=== PATIENT | female | born 1980 | race Caucasian/White ===

== ENCOUNTER 2018-11-11 13:21 | Outpatient (REF) | payer MEDICAID, SELFPAY ==
[2018-11-11 16:15] LABS: Anion Gap 10.8 mmol/L (3-11); BUN 14 mg/dL (7-18); CO2 22.2 mmol/L (21.0-32.0); CREATININE 0.65 mg/dL (0.55-1.02); Calcium 9.1 mg/dL (8.5-10.1); Chloride 104 mmol/L (98-107); Cholesterol 247 mg/dL (50-200); Glucose 119 mg/dL (70-100); HDL Cholesterol 20 mg/dL (40-60); Potassium 4.2 mmol/L (3.5-5.1); Sodium 137 mmol/L (136-145)
[2018-11-11 16:20] LABS: Triglyceride 1123 mg/dL (30-150)
[2018-11-11 16:33] LABS: LDL CHOLESTEROL 93 mg/dL (<100)
== END 2018-11-11 13:41 ==
LOC: NCHCN 13:21
PROVIDERS: PCP Nurse Practitioner Family; Visit Provider Nurse Practitioner Family
DX: Z00.00 Encounter for general adult medical examination without abnormal findings (principal); B35.4 Tinea corporis; L30.9 Dermatitis, unspecified; Z13.220 Encounter for screening for lipoid disorders; B35.3 Tinea pedis
CPT/HCPCS: 80048; 80061; 83721

== ENCOUNTER 2018-12-21 09:35 | Outpatient (REF) | payer MEDICAID, SELFPAY ==
[2018-12-21 11:21] LABS: Bilirubin Negative (Negative); Blood Trace-lysed (Negative); Clarity Clear (Clear); Glucose Negative (Negative); Ketones Negative (Negative); Leukocyte Esterase Negative (Negative); Nitrite Negative (Negative); Specific Gravity 1.025 (1.005-1.025); Urobilinogen 0.2 EU/dL (Up TO 0.2)
[2018-12-21 11:30] LABS: Bacteria Moderate HPF (Negative); Casts Negative LPF (Negative); Crystals Negative HPF (Negative); Epithelial Cells Moderate HPF (Negative); Mucus Negative (Negative); RBC Negative (0-2); WBC 0-2 HPF (0-5)
[2018-12-21 11:31] LABS: C & S Indicated? No/Sq. Contamination
[2018-12-21 11:41] LABS: Anion Gap 11.2 mmol/L (3-11); BUN 13 mg/dL (7-18); CO2 24.8 mmol/L (21.0-32.0); CREATININE 0.58 mg/dL (0.55-1.02); Calcium 9.2 mg/dL (8.5-10.1); Chloride 103 mmol/L (98-107); Cholesterol 224 mg/dL (50-200); Glucose 116 mg/dL (70-100); HDL Cholesterol 32 mg/dL (40-60); Potassium 4.2 mmol/L (3.5-5.1); Sodium 139 mmol/L (136-145); TSH (W/Ref FT4) 3.69 uIU/mL (0.36-3.74); Triglyceride 452 mg/dL (30-150)
[2018-12-21 11:53] LABS: LDL CHOLESTEROL 116 mg/dL (<100)
== END 2018-12-21 09:55 ==
LOC: NCHCN 09:35
PROVIDERS: PCP Nurse Practitioner Family; Visit Provider Nurse Practitioner Family
DX: E78.1 Pure hyperglyceridemia (principal)
CPT/HCPCS: 80048; 80061; 83721; 81003; 81015; 84443

== ENCOUNTER 2019-09-09 10:55 | Outpatient (REF) | payer MEDICAID, SELFPAY ==
[2019-09-09 16:09] LABS: HCT 44.1 % (36.0-46.0); HGB 14.9 g/dL (12.0-15.5); Mean Corp. HGB Concentration 33.8 g/dL (32.0-36.0); Mean Corpuscular Hemoglobin 30.6 pg (27.0-33.0); Mean Corpuscular Volume 90.6 fL (80-95); Mean Platelet Volume 11.3 fL (8.0-11.0); Platelet Count 290 x1000/uL (130-400); RBC 4.87 m/cumm (4.00-5.20); RBC Distribution Width 13.5 % (11.7-14.6); White Blood Cell Count 7.37 k/cumm (4.4-10.8)
[2019-09-09 16:20] LABS: ALT 25 U/L (14-59); AST 18 U/L (15-37); Albumin 4.3 g/dL (3.4-5.0); Alkaline Phosphatase 86 U/L (46-116); Anion Gap 8.6 mmol/L (3-11); BUN 18 mg/dL (7-18); Bilirubin, Total 0.3 mg/dL (0.2-1.0); CO2 28.4 mmol/L (21.0-32.0); Calcium 9.7 mg/dL (8.5-10.1); Chloride 100 mmol/L (98-107); Glucose 110 mg/dL (74-106); Potassium 4.3 mmol/L (3.5-5.1); Sodium 137 mmol/L (136-145); Total Protein 7.9 g/dL (6.4-8.2)
[2019-09-09 16:27] LABS: Bilirubin Negative (Negative); Blood Moderate (Negative); Clarity Sl Cloudy (Clear); Glucose Negative (Negative); Ketones Negative (Negative); Leukocyte Esterase Negative (Negative); Nitrite Negative (Negative); Specific Gravity >= 1.030 (1.005-1.025); Urobilinogen 0.2 EU/dL (Up TO 0.2)
[2019-09-09 16:37] LABS: Bacteria Few HPF (Negative); C & S Indicated? C&S Done As Ordered; Casts Negative LPF (Negative); Crystals Negative HPF (Negative); Epithelial Cells Many HPF (Negative); Mucus Negative (Negative); RBC 0-2 HPF (0-2); WBC 0-2 HPF (0-5)
[2019-09-12 14:40] LABS: IgA 129 mg/dL (85-499); Tissue Transglutaminase IgA <1.2 U/mL (<4.0)
== END 2019-09-09 11:15 ==
LOC: NCHCN 10:55
PROVIDERS: PCP Nurse Practitioner Family; Visit Provider Nurse Practitioner Family
DX: R31.9 Hematuria, unspecified (principal); K92.1 Melena
CPT/HCPCS: 80053; 82784; 83516; 85027; 81003; 81015; 87086

== ENCOUNTER 2019-12-09 08:00 | Outpatient (CLI) | payer MEDICAID, SELFPAY ==
[2019-12-10 03:01] LABS: COVID-19 RT-PCR UVMMC Result Negative (Negative)
== END 2019-12-09 08:20 ==
PROVIDERS: PCP Nurse Practitioner Family; Visit Provider Surgery
DX: Z01.818 Encounter for other preprocedural examination (principal)
CPT/HCPCS: U0003

== ENCOUNTER 2019-12-13 07:55 | Day surgery (SDC) | payer MEDICAID, SELFPAY ==
[2019-12-13 08:05] VITALS: BP 118/79; PULSE 80; RESP 16; TEMP 36.1; O2SAT 99
[2019-12-13] MEDS: Lactated Ringers 1,000 ML 80 ML IV (08:25)
--- NOTE | 2019-12-13 08:32 | W.PM.DSUDISC ---
Discharge Plan Disposition Patient Disposition: HOME Condition: Good Discharge Details Reason For Visit: EGD, Colonoscopy Attending Provider: Gaby George Primary Care Provider: Nithya Read Home Meds and New Rx's Prescriptions: New omeprazole magnesium 20 mg tablet,delayed release (DR/EC) 20 mg PO DAILY Qty: 30 RF: 2 sucralfate 1 gram tablet 1 g PO QACHS Qty: 120 RF: 1 Continued omeprazole 20 mg tablet,delayed release (DR/EC) 20 mg PO DAILY RF: 0 triamcinolone acetonide 0.1 % cream 1 applic topical BID RF: 0 nystatin 100,000 unit/gram cream 1 applic topical BID RF: 0 Discharge Instructions Additional Instructions: Findings: Your upper endoscopy showed moderate inflammation of the stomach (gastritis). Take omeprazole on a daily basis. Avoid NSAIDS such as ibuprofen/Aleve. Your colonoscopy looked normal except for prominent internal hemorrhoids which are the source of the rectal bleeding. Three bands were applied. It is normal to have rectal pressure from the banding. Tylenol and sitz baths can be helpful. A small of bleeding is expected. It takes 4-6 weeks to see the results of hemorrhoid banding. If you are still have bleeding, banding can be repeated. Please call if you develop: fevers >101.5 Nausea or Vomiting Abdominal pain that is not transient DAY SURGERY UNIT POST EGD/COLONOSCOPY INSTRUCTIONS 1. Because there will be medication in your system for the next 24 hours, you may feel a little sleepy. Your coordination will be affected. Therefore: a. Do not drive or operate dangerous equipment for 24 hours. b. Do not drink alcohol beverages for 24 hours (not even beer). c. Plan to go home and rest for the day. 2. Generally there are no restrictions on your activity after a day or so has gone by, but you may feel a bit fatigued for a few days. 3 After you arrive home you may have a light meal and return to a normal diet as you can tolerate it without feeling sick to your stomach. 4. After surgery, you may feel pain or discomfort. This should be only transient, but if it persists please contact your doctor. 5. If there are any questions regarding the findings of your procedure, please feel free to contact your doctor. 6. If you are unable to contact your doctor with a problem, contact the hospital at [phone]. 7. Continue all your regular medications unless directed otherwise. I understand the above instructions and have no questions. Signature of Patient or Responsible Adult Escort Date/Time Name of Responsible Adult Escort Signature of Nurse Date/Time Activity:: Do not lift more than 15 pounds for two days Diet:: As Tolerated Discharge Orders Discharge Orders: Discharge Order (Routine); Ordered 12/13/19 Ordered By: Gaby George DS: Diagnosis Discharge Diagnosis (1) Gastritis: Status: Acute (2) Internal bleeding hemorrhoids: Status: Acute
--- NOTE | 2019-12-13 08:33 | COLE_ITS ---
Colonoscopy Report Date of procedure: 12/13/19 Pre-op diagnosis general: GERD, rectal bleeding Post-op diagnosis procedure note: other (Moderate gastritis, normal colon, internal hemorrhoids) Procedure: EGD with biopsies Colonoscopy with random biopsies Internal hemorrhoid banding Surgeon: Gaby George Anesthesia proc note operative: MAC Indications: This 39 year woman notes rectal bleeding for the past several months. Can have up to 5 stools/day. Notes some central abdominal pain. Is taking OTC PPI for daily reflux symptoms. No prior EGD/colonoscopy. Procedure Description: The patient was placed in the left lateral position and propofol titrated to sedation. The endoscope was advanced into the esophagus under direct visualization. The scope was passed through the stomach and into the duodenum. There was no duodenitis or ulceration noted. Biopsies were taken from the second portion of the duodenum to evaluate for celiac disease. The stomach itself showed moderate gastritis. There were no other abnormalities including on retroflexed view of the fundus and lesser curvature. Routine biopsies were taken from the gastric antrum. The GE junction was inspected and showed no significant stricture, inflammation, masses or Barretts. The scope was slowly withdrawn with no other esophageal lesions found. Digital rectal examination revealed no abnormalities. The scope was advanced to the cecum without difficulty. The ileocecal valve and appendiceal orifice were clearly identified. The prep was good. The scope was slowly withdrawn over the course of greater than 6 minutes with no abnormalities seen in the ascending, transverse, descending, sigmoid colon or rectum. Random biopsies were performed to evaluate for microscopic colitis. Retroflexed view showed prominent internal hemorrhoids which are the source of bleeding. Three bands were applied above the dentate line with good result. T he patient tolerated the procedure well and was stable to recovery. Plan for routine screening colonoscopy in 10 years or sooner if symptoms indicate. She is advised to take omeprazole on a daily basis.
--- NOTE | 2019-12-13 09:03 | STOM_PTH ---
PATIENT: Dimple Simon LOC: [facility] U#:[id number] AGE/SX: 39/F ROOM: RE12/13/[address]: Gaby George MD : 1980 BED: DIS: 12/13/2019 SPEC #: [id number] RECD: 12/13/19 11:56 STATUS: NEERU RE #: [id number] ABBY: 12/13/19 09:[address]: Gaby George DEPT: Surgical Specimen RECD BY: Joanna Schulz ENTERED: 12/13/19 11:57 SP TYPE: STOMACH OTHR DR: Nithya Read Tissues: 1 - STOMACH BIOPSY 2 - STOMACH BIOPSY 3 - BIOPSY BOWEL Procedures: GROSS AND MICRO LEVEL 4 Comments: [id number]
[2019-12-13 09:40] VITALS: BP 128/82; PULSE 75; RESP 12; TEMP 36.1; O2SAT 98
[2019-12-13 09:45] VITALS: BP 109/90; PULSE 74; RESP 15; TEMP 36.1; O2SAT 94
[2019-12-13 09:50] VITALS: BP 112/80; PULSE 72; RESP 13; TEMP 36.1; O2SAT 98
[2019-12-13 10:05] VITALS: BP 123/95; PULSE 70; RESP 16; TEMP 36.1; O2SAT 98
[2019-12-13 10:56] VITALS: BP 113/76; PULSE 65; RESP 16; TEMP 36.6; O2SAT 96
== END 2019-12-13 11:12 | disposition home or self-care (01) ==
PROVIDERS: PCP Nurse Practitioner Family; Visit Provider Surgery
PROC: (CPT 43239; principal; 2019-12-13 09:45)
PROC: (CPT 43239; 2019-12-13 09:45)
DX: K29.70 Gastritis, unspecified, without bleeding (principal); K21.9 Gastro-esophageal reflux disease without esophagitis; K62.5 Hemorrhage of anus and rectum
CPT/HCPCS: 43239; 45378; 88305; J2001; J2704

== ENCOUNTER 2021-05-24 16:18 | Outpatient (REF) | payer MEDICAID, SELFPAY ==
[2021-05-24 17:22] LABS: Abs Immature Grans 0.05 10^3/uL (0.0-0.06); Absolute Basophil Count 0.03 10^3/uL (0.0-0.2); Absolute Eosinophil Count 0.52 10^3/uL (0.0-0.7); Absolute Lymphocyte Count 3.38 10^3/uL (1.2-3.4); Absolute Monocyte Count 0.65 10^3/uL (0.1-0.8); Absolute Neutrophil Count 6.37 10^3/uL (1.2-6.7); Basophils % 0.3; Eosinophils % 4.7; HGB 13.8 g/dL (11.2-15.7); Immature Grans % 0.5; Lymphocytes % 30.7; MCH 29.4 pg (27.0-33.0); MCHC 32.1 % (32.0-36.0); MCV 91.5 fL (80-95); MPV 11.1 fL (8.0-11.0); Monocytes % 5.9; Neutrophils % 57.9; Nucleated RBC 0 %; Platelet Count 272 10^3/uL (130-400); RDW 14.3 % (11.7-14.6); RDW-SD 48.3 fL; WBC 11.01 10^3/uL (4.4-10.8)
[2021-05-24 17:32] LABS: ALT 29 U/L (14-59); AST 16 U/L (15-37); Alkaline Phosphatase 98 U/L (46-116); BUN 12 mg/dL (7-18); Bilirubin, Total 0.3 mg/dL (0.2-1.0); CREATININE 0.7 mg/dL (0.55-1.02); Calcium 9.2 mg/dL (8.5-10.1); Chloride 104 mmol/L (98-107); Glucose 87 mg/dL (74-106); Potassium 3.7 mmol/L (3.5-5.1); Sodium 139 mmol/L (136-145); Total Protein 7.3 g/dL (6.4-8.2)
== END 2021-05-24 16:19 | disposition home or self-care (01) ==
LOC: NCHCN 16:18
PROVIDERS: PCP Nurse Practitioner Family; Visit Provider Nurse Practitioner Family
DX: R19.7 Diarrhea, unspecified (principal)
CPT/HCPCS: 80053; 85025

== ENCOUNTER 2021-06-18 01:20 | Outpatient (CLI) | payer MEDICAID, SELFPAY ==
[2021-06-18] MEDS: Omnipaque 350 MG/ML 50 ML BTL IJ (09:38)
[2021-06-18] MEDS: Breeza Beverage 473 ML BTL 950 ML PO (09:39)
--- NOTE | 2021-06-18 10:24 | DI.CT_ITS ---
Exam(s) CT ABDOMEN PELVIS W EXAM: CT ABDOMEN PELVIS W CLINICAL HISTORY: GENERALIZED ABD PAIN, R10.84; CHRONIC DIARRHEA, R19.7. TECHNIQUE: Imaging Protocol: Axial computed tomography images with coronal and sagittal reformatted images were created and reviewed CONTRAST MATERIAL: Intravenous: Omnipaque 100cc Oral: Yes. Oral contrast was administered for bowel opacification COMPARISON: No exams were available for comparison FINDINGS: VISUALIZED LUNG BASES: No nodules nor pleural effusions evident. ABDOMEN: There is no ascites. LIVER: The liver is hypodense implying steatosis. There is mild fatty parenchymal sparing adjacent t o the gallbladder fossa. No ominous focal hepatic lesions evident. No dilatation of intrahepatic du cts GALLBLADDER/BILIARY: No obvious gallbladder pathology. CBD is not dilated. PANCREAS: No evidence of pancreatic mass nor dilatation of the pancreatic duct. SPLEEN: Spleen is not enlarged. No obvious intrasplenic lesions. Splenic and portal veins are paten t. ADRENALS: There are no significant adrenal masses. KIDNEYS:No cysts evident. No solid renal masses. No calculi nor hydronephrosis.. ABDOMINAL AORTA: Abdominal aorta is not enlarged. LYMPH NODES:There is no retroperitoneal nor paraaortic adenopathy. ABDOMINAL WALL: No evidence of significant anterior abdominal wall nor inguinal hernia. GI: There is no evidence of bowel obstruction, free air, nor abscess. PELVIS: GI: No evidence of appendicitis. The terminal ileum appears unremarkable. No evidence of sigmoid di verticulitis.No obvious colitis pattern. LYMPH NODES: There is no intrapelvic nor inguinal adenopathy. REPRODUCTIVE: Uterus appears unremarkable. Left ovary is mildly prominent, measuring 4.2 by 2.5 cm a nd contains involuting cyst. Opposite-right ovary is smaller, upper normal size. There is no free f luid. URINARY BLADDER: No calculi nor obvious masses evident OSSEOUS: No significant osseous lesions. There is increased density around both sacroiliac joints consistent with probable sacroiliitis. Ther e is no ankylosis of the SI joints. IMPRESSION: 1. Hepatic steatosis. No discrete focal hepatic lesions. Correlation with a patent blood work is re commended. 2. Slightly prominent left ovarian size and the left ovary is cystic. Recommend follow-up ultrasound of the ovaries. Uterus appears unremarkable. There is no free fluid in the pelvis. 3. Findings in sacroiliac joints consistent with probable sacroiliitis. RADIATION DOSE DELIVERED: 1,069.31mGy.cm Total DLP DATA REPOSITORY: All CT scans at this facility are submitted to the National Radiology Data Registry (NRDR) Dose Index Registry (DIR) with the [employer] (A[employer]). RADIATION OPTIMIZATION: All CT scans at this facility use at least one of these dose optimization te chniques: automated exposure control; mA and/or kV adjustment per patient size (includes targeted exa ms where dose is matched to clinical indication); or iterative reconstruction.
[2021-06-18] MEDS: Omnipaque 350 MG/ML 100 ML BTL IJ (10:39)
== END 2021-06-18 01:40 ==
PROVIDERS: PCP Nurse Practitioner Family; Visit Provider Nurse Practitioner Family
DX: R10.84 Generalized abdominal pain (principal); R19.7 Diarrhea, unspecified; K76.0 Fatty (change of) liver, not elsewhere classified; N83.292 Other ovarian cyst, left side; N83.8 Other noninflammatory disorders of ovary, fallopian tube and broad ligament; M53.3 Sacrococcygeal disorders, not elsewhere classified
CPT/HCPCS: 74177; J3490; Q9967

== ENCOUNTER 2021-06-27 13:48 | Outpatient (REF) | payer MEDICAID, SELFPAY ==
--- NOTE | 2021-06-27 13:45 | PAPFT_PTH ---
PATIENT: Dimple Simon LOC: [facility] U#:[id number] AGE/SX: 40/F ROOM: RE06/27/[address]: Denise Morocho : 1980 BED: DIS: 06/27/2021 SPEC #: [id number] RECD: 06/27/21 18:34 STATUS: NEERU [place] #: [id number] ABBY: 06/27/21 13:[address]: Denise Morocho DEPT: FOR[facility]LY [facility], [facility]–1983 Cytology RECD BY: Joanna Schulz ENTERED: 06/27/21 18:34 SP TYPE: PAPFT OTHR DR: Nithya Read Tissues: 1 - CX/ENDOCX FOR PAP SMEARS Procedures: PAP THIN PREP/[facility] Screening Comments: [id number]
[2021-06-28 13:10] LABS: Chlamydia Result Negative (Negative); GC Result Negative (Negative)
== END 2021-06-27 13:49 | disposition home or self-care (01) ==
LOC: LBN 13:48
PROVIDERS: PCP Nurse Practitioner Family; Visit Provider Obstetrics & Gynecology Gynecology
DX: R10.9 Unspecified abdominal pain (principal); Z11.3 Encounter for screening for infections with a predominantly sexual mode of transmission; Z12.4 Encounter for screening for malignant neoplasm of cervix
CPT/HCPCS: 87491; 87591; 88142

== ENCOUNTER 2021-06-28 18:07 | Outpatient (REF) | payer MEDICAID, SELFPAY ==
[2021-06-28 12:56] LABS: C Diff PCR Negative (Negative)
== END 2021-06-28 18:08 | disposition home or self-care (01) ==
LOC: LBN 18:07
PROVIDERS: PCP Nurse Practitioner Family; Visit Provider Obstetrics & Gynecology Gynecology
DX: R19.7 Diarrhea, unspecified (principal)
CPT/HCPCS: 87493; 87177

== ENCOUNTER → 2021-07-16 01:57 | Outpatient (CLI) | payer MEDICAID, SELFPAY ==
--- NOTE | 2021-07-16 06:45 | DI.US_ITS ---
Exam(s) US PELVIS TRANSVAGINAL EXAM: US PELVIS TRANSVAGINAL CLINICAL HISTORY: ABD PAIN, F10.9,F/U RECENT CT TECHNIQUE: Ultrasound of the pelvis was performed both transabdominal and transvaginal. COMPARISON: Prior CT scan 06/18/2021 was reviewed. FINDINGS: UTERUS: Measures 10 cm length x 4 cm AP x 7 cm wide. There is a small posterior myometrial fibroid measuring 1.7 x 1.5 x 1.6 cm Endometrial thickness measures 15 mm. There is no fluid in the endometrial canal. CERVIX: There are multiple nabothian cysts in the cervix. RIGHT OVARY: Measures 3.3 x 2.9 x 2.1 cm No significant cysts nor masses evident in the right ovary. LEFT OVARY: Only seen on transabdominal study (given that it is higher up in the adnexa when compared to the right ovary) Measures 2.7 x 2.3 x 1.4 cm Left ovary appears unremarkable on today's study. Previously described cystic structure in the left ovary on the recent CT scan of 06/18/2020 is not seen on ultrasound. CUL-DE-SAC: Mild free fluid noted in the cul-de-sac IMPRESSION: 1. Slightly thickened endometrium (14-15 millimeters.. Recommend follow-up study in a few months [place]. 2. No abnormal ovarian findings. The left ovary was only able to be seen on transabdominal study giv en its higher position in the left adnexa. However, it is adequately seen and the previously describ ed cystic structure on the recent CT scan in the left ovary is no longer seen. 3. There is a small amount of free fluid in the cul-de-sac. Multiple nabothian cysts noted. DATA REPOSITORY:
== END ==
PROVIDERS: PCP Nurse Practitioner Family; Visit Provider Obstetrics & Gynecology Gynecology
DX: R10.9 Unspecified abdominal pain (principal); R93.89 Abnormal findings on diagnostic imaging of other specified body structures; N88.8 Other specified noninflammatory disorders of cervix uteri
CPT/HCPCS: 76830; 76856

== ENCOUNTER 2022-06-04 19:52 | Outpatient (REF) | payer MEDICAID, SELFPAY ==
[2022-06-04 22:07] LABS: Abs Immature Grans 0.03 10^3/uL (0.0-0.06); Absolute Basophil Count 0.03 10^3/uL (0.0-0.2); Absolute Lymphocyte Count 2.59 10^3/uL (1.2-3.4); Absolute Neutrophil Count 5.57 10^3/uL (1.2-6.7); Basophils % 0.3; Eosinophils % 1.1; HCT 40.6 % (36.0-46.0); HGB 13.7 g/dL (11.2-15.7); Immature Grans % 0.3; Lymphocytes % 29.4; MCH 30.1 pg (27.0-33.0); MCHC 33.7 % (32.0-36.0); MCV 89 fL (80-95); MPV 11.3 fL (8.0-11.0); Monocytes % 5.7; Neutrophils % 63.2; Platelet Count 264 10^3/uL (130-400); RBC 4.55 10^6/uL (3.93-5.22); RDW 14.2 % (11.7-14.6); RDW-SD 45.8 fL; WBC 8.82 10^3/uL (4.4-10.8)
[2022-06-04 22:24] LABS: ALT 21 U/L (14-59); AST 13 U/L (15-37); Albumin 4.1 g/dL (3.4-5.0); Alkaline Phosphatase 86 U/L (46-116); Anion Gap 9.8 mmol/L (3-11); BUN 11 mg/dL (7-18); Bilirubin, Total 0.2 mg/dL (0.2-1.0); CO2 26.2 mmol/L (21.0-32.0); CREATININE 0.6 mg/dL (0.55-1.02); Calcium 9.1 mg/dL (8.5-10.1); Chloride 105 mmol/L (98-107); Cholesterol 248 mg/dL (<200); Estimated GFR 114.86 (mL/min/1.73m2); Glucose 104 mg/dL (74-106); HDL Cholesterol 36 mg/dL (40-60); Potassium 3.3 mmol/L (3.5-5.1); Sodium 141 mmol/L (136-145); Total Protein 7.5 g/dL (6.4-8.2); Triglyceride 501 mg/dL (<150)
[2022-06-04 22:40] LABS: LDL CHOLESTEROL 122 mg/dL (<100)
== END 2022-06-04 19:53 | disposition home or self-care (01) ==
LOC: NCHCN 19:52
PROVIDERS: PCP Nurse Practitioner Family; Visit Provider Nurse Practitioner Family
DX: E78.1 Pure hyperglyceridemia (principal); R19.7 Diarrhea, unspecified
CPT/HCPCS: 80053; 80061; 83721; 85025

== ENCOUNTER 2022-06-10 01:50 | Outpatient (CLI) | payer MEDICAID, SELFPAY ==
--- NOTE | 2022-06-10 12:22 | DI.MAMMO_ITS ---
Exam(s) MAMMO SCREENING EXAM: MAMMO SCREENING CLINICAL HISTORY: SCREENING, Z12.39 TECHNIQUE: Bilateral full field digital CC and MLO mammographic images were obtained with 3D tomosyn thesis and utilizing computer aided detection (CAD). COMPARISON: Available for comparison. FINDINGS: Masses/Architectural Distortion: There is an ovoid density in the medial left breast which appears sl ightly more prominent compared to the prior examination. Microcalcifications: No suspicious pleomorphic-type are seen. Skin Thickening/Nipple Retraction: None. IMPRESSION: 1. Ovoid density in the medial left breast. 2. This area should be further evaluated with spot compression view. Limited left breast ultrasound is also recommended. BI-RADS Category 0 - Assessment Incomplete: Need additional imaging evaluation Breast Density - Category C - Heterogeneously dense Breast density category C or D implies that the patient has dense breast tissue. Dense breast tissue is very common and is not abnormal but dense breast tissue can make it harder to find cancer on a ma mmogram. Also, dense breast tissue may increase their breast cancer risk. This information about the result of the mammogram report was provided to the patient to raise their awareness. Use this report when you speak with the patient about their risks for breast cancer, which includes their family hist ory. At that time, you may recommend for more screening tests (Ultrasound or MRI) as they might be us eful based on their risk. A negative radiographic report should not delay biopsy if a dominant or clinically suspicious mass is present. Up to ten percent of cancers are not identified on mammography. A negative report may reinforce clinical impression. Adenosis and dense breasts may obscure an underlying neoplasm. False positive reports average 6 to 10%. Patient will receive a letter notifying them of these results.
== END 2022-06-10 02:10 ==
LOC: DI 01:51
PROVIDERS: PCP Nurse Practitioner Family; Visit Provider Nurse Practitioner Family
DX: Z12.31 Encounter for screening mammogram for malignant neoplasm of breast (principal)
CPT/HCPCS: 77063; 77067

== ENCOUNTER 2022-06-13 00:41 | Outpatient (CLI) | payer MEDICAID, SELFPAY ==
--- NOTE | 2022-06-13 | DI.US_ITS ---
Exam(s) MG MAMMO SCREEN CALL BACK UNI US BREAST LT LIMITED EXAM: MG MAMMO SCREEN CALL BACK UNI CLINICAL HISTORY: F/U MAMMO, OVOID DENSITY LT BREAST MEDIAL. TECHNIQUE: Craniocaudal and mediolateral oblique spot compression digital Mammography views of the breast followed by Tomosynthesis and breast ultrasound. COMPARISON: DIAGNOSTIC BILAT MAMMO W/CAD from 03/11/2011 US US BREAST LT LIMITED from 06/13/2022 FINDINGS: Mammography/Tomosynthesis: Masses/Architectural Distortion: Area of linear dense tissue seen the medial aspect of the breast. Microcalcifictions: No suspicious pleomorphic-type are seen. Skin Thickening/Nipple Retraction: None. Left breast US: Echotexture: Normal appearance of the glandular tissue. Shadowing: No suspicious foci. Cyst: 5 by 5 x 3 millimeter cyst 12 o'clock position 10 cm from the nipple. Solid lesions: 6 x 2 x 5 millimeter hypoechoic nodule in the 10 o'clock position 8 cm from the nipple the appearance of an intramammary lymph node. No suspicious masses. Ductal dilation: None. IMPRESSION: 1. No evidence of malignancy is noted. 2. Unless there is more urgent need, follow-up screening mammography is recommended, as per [place] [employer] guidelines. 3. The findings were discussed with the patient on the date of the examination. BI-RADS Category 2 - Benign Findings Breast Density - Category C - Heterogeneously dense A mammogram that demonstrates density of C or D indicates the patient's breast tissue is dense. Dense breast tissue is very common and is not abnormal, but dense breast tissue can make it harder to find cancer on a mammogram. Also, dense breast tissue may increase their breast cancer risk. This informa tion about the result of the mammogram report was provided to the patient to raise their awareness. U se this report when you speak with the patient about their risks for breast cancer, which includes th eir family history. At that time, you may recommend for more screening tests (Ultrasound or MRI) as t hey might be useful based on their risk. A negative radiographic report should not delay biopsy if a dominant or clinically suspicious mass is present. Up to ten percent of cancers are not identified on mammography. A negative report may reinforce clinical impression. Adenosis and dense breasts may obscure an underlying neoplasm. False positive reports average 6 to 10%. Patient will receive a letter notifying them of these results.
== END 2022-06-13 01:01 ==
LOC: DI 00:42
PROVIDERS: PCP Nurse Practitioner Family; Visit Provider Nurse Practitioner Family
DX: R92.8 Other abnormal and inconclusive findings on diagnostic imaging of breast (principal)
CPT/HCPCS: 76642; 77063; 77067

== ENCOUNTER 2023-01-15 14:14 | Outpatient (CLI) | payer MEDICAID, SELFPAY ==
[2023-01-15 10:31] LABS: ALT 21 U/L (14-59); AST 15 U/L (15-37); Alkaline Phosphatase 80 U/L (46-116); Bilirubin, Direct 0.1 mg/dL (0.0-0.2); Bilirubin, Total 0.3 mg/dL (0.2-1.0); Total Protein 7.8 g/dL (6.4-8.2)
== END 2023-01-15 14:15 | disposition home or self-care (01) ==
LOC: LBO 14:14
PROVIDERS: PCP Nurse Practitioner Family
DX: Z79.899 Other long term (current) drug therapy (principal); B35.1 Tinea unguium
CPT/HCPCS: 36415; 80076

== ENCOUNTER 2023-03-05 14:32 | Outpatient (REF) | payer MEDICAID, SELFPAY ==
[2023-03-05 19:08] LABS: ALT 17 U/L (14-59); AST 16 U/L (15-37); Albumin 4.1 g/dL (3.4-5.0); Alkaline Phosphatase 82 U/L (46-116); Anion Gap 9.5 mmol/L (3-11); BUN 16 mg/dL (7-18); Bilirubin, Total 0.2 mg/dL (0.2-1.0); CO2 25.5 mmol/L (21.0-32.0); CREATININE 0.5 mg/dL (0.55-1.02); Calcium 9.1 mg/dL (8.5-10.1); Chloride 105 mmol/L (98-107); Estimated GFR 119.27 (mL/min/1.73m2); Glucose 98 mg/dL (74-106); Potassium 3.4 mmol/L (3.5-5.1); Sodium 140 mmol/L (136-145)
--- OUTSIDE RECORDS SUMMARY | 2023-03-06 13:16 | XMS_ITS | Continuity of Care Document ---
Author Name Unknown Organization [facility] Ambulatory Clinics Address [address] [place] [address] Care Team Providers Care Bell Cleaner Name Role Phone Jose Antonio Christian Primary Care Physician [phone] Encounter [facility] NBR [id number] Date(s): 01/21/22 - 01/21/22 [facility] Ambulatory Clinics [address] [place], [place] [address] Encounter Diagnosis IBS (irritable bowel syndrome)(Discharge Diagnosis) - 01/21/22 Chronic diarrhea(Discharge Diagnosis) - 01/21/22 Hematochezia(Discharge Diagnosis) - 01/21/22 Vomiting(Discharge Diagnosis) - 01/21/22 Marijuana use(Discharge Diagnosis) - 01/21/22 Discharge Disposition: Home or Self Care Attending Physician: Heidi Marc APRN Allergies, Adverse Reactions, Alerts No Known Allergies Assessment and Plan Future Appointments Functional Status 01/21/22 Other exposure to Infectious Disease Non e Medications No Known Medications Problem List Condition Confirmation Course Effective Dates Status Health Status Informant AP (abdominal pain) Confirmed Active Allergic rhinitis Confirmed Active Chronic diarrhea Confirmed Active GERD (gastroesophageal reflux disease) Confirmed Active Hematochezia Confirmed Active Hypertriglyceridemia Confirmed Active IBS (irritable bowel syndrome) Confirmed Active Marijuana use Confirmed Active Onychomycosis Confirmed Active Psoriasis Confirmed Active Vomiting Confirmed Active Procedures Procedure Date Related Diagnosis Body Site Status section Complete d Colonoscopy 1 Completed done in [place] Vital Signs Most recent to oldest [Reference Range]: 1 Temperature Temporal Artery [36-38 Deg C ] 36.2 Deg C (01/21/22 8:08 AM) Peripheral Pulse Rate [60-100 bpm] 92 bp m (01/21/22 8:08 AM) Respiratory Rate [12-24 br/min] 20 br/mi n (01/21/22 8:08 AM) Blood Pressure [90-140/60-90 mmHg] 128/8 2mmHg (01/21/22 8:08 AM) Weight 75.3 kg (01/21/22 8:08 AM) Weight Measured (lbs) 166.008 lb (01/21/22 8:08 AM) [place] Body Weight Calculated 47.8 kg (01/21/22 8:08 AM) Height 154.94 cm (01/21/22 8:08 AM) Height/Length Measured (inches) 61 inch (01/21/22 8:08 AM) BSA Measured 1.8 m2 (01/21/22 8:08 AM) Body Mass Index 31.37 kg/m2 (01/21/22 8:08 AM) Social History Social History Type Response Tobacco Former tobacco user Tobacco Use:. Sex Physician Outpatient Note * Heidi Marc APRN: PERFORM, MODIFY Event Display: Office Clinic Note Physician Authored Date: [id number] ALIA DELACRUZ :1980 Age:41 years Sex:Female Visit Date:01/21/2022 Primary Care Physician: Jose Antonio Christian Chief Complaint follow up IBS and chronic Diarrhea History of Present Illness Patient is a 41??-year-old female patient of Jose Antonio Christian DNP with over 10 years of intermittent diarrhea is referred for further evaluation and management. She is an established patient here today for follow up. ?? Patient reports at least 10 years of diarrhea described as nonbloody watery stool at least 3 days/week occasionally awakening her from sleep associated with tenesmus, crampy lower abdominal pain usually relieved by defecation. In November 2020 she began to have bright red blood per rectum and underwent colonoscopy at [facility] with banding of hemorrhoids. We do not have any prior endoscopy or imaging studies to review at this time. The patient was told that she should repeat her colonoscopy in 10 years.??From February to May the patient reported nonbloody watery diarrhea associated with nausea and vomiting which would awaken her from sleep. No hematemesis. Patient saw PRINTED CIRCUIT BOARD REWORKER in June of this year and had an ultrasound ordered which showed an ovarian cyst. Patient was prescribed Zofran. However her nausea is becoming less frequent and she has used Zofran only twice in the last 2 weeks. Nausea andvomiting has improved but had not occurred prior to February of this year. She also complains of morning lower back stiffness and reportedly had imaging studies which showed sacroiliitis. She reports that she is being referred to a account executive sales representative. The patient believes that she was tested for celiac disease. On 05/24/2021 CMP was normal, mild leukocytosis with normal hemoglobin. No other labs were received. ?? Has intermittent abdominal pain, diarrhea with [place] Form 5 to 6 stools numerous times of the day and night.?? Having large amounts of Hematochezia.?? Has last 30 pounds in past year with eliminating certain foods from her diet. Continues to omit undigested food around 3 AM daily.??Denies appetite changes, pyrosis or dyspepsia.?? Has not tried Amitriptyline??yet. ?? 07/30/2021 celiac??was normal, CBC normal,??CRP less than 8 and sed rate less than 20. ??Calprotectin was not completed. ?? 06/18/2021 patient had pelvic ultrasound transvaginally showing numerous??cysts??on her cervix??and slightly thickened endometrium. ?? On 12/15/2019 patient had a colonoscopy that was unremarkable.?? Pathology report ruled out colitis. ?? She has no first-degree relatives with GI cancers or inflammatory bowel disease Review of Systems General: Denies malaise or fatigue. HEENT: Denies globus sensation or dysphagia. Respiratory: Denies shortness of breath, cough, or wheeze. Cardiovascular: Denies chest pain, palpitations, lightheadedness, dizziness, syncope or peripheral edema. ?? Abdomen: Has intermittent abdominal pain, diarrhea with [place] Form 5 to 6 stools numerous times of the day and night.?? Having large amounts of Hematochezia.?? Has last 30 pounds in past year with eliminating certain foods from her diet. Continues to omit undigested food around 3 AM daily.??Denies appetite changes, pyrosis or dyspepsia.?? Skin: Denies rashes or lesions. Neurological: Denies any problems with gait or balance. Physical Exam Vitals & Measurements T:??36.2?C ??(Temporal Artery)?? HR:??92??(Peripheral)?? RR:??20?? BP:??128/82?? SpO2:??98%?? HT:??154.94??cm?? WT:??75.3??kg?? BMI:??31.37?? BSA:??1.8?? General: Well-nourished well-developed??female??in no acute distress. HEENT: Head is normocephalic, trachea midline, and no cervical lymphadenopathy. Respiratory: Respirations are even and unlabored. ??Lungs are clear to auscultation. Cardiovascular: Regular rate and rhythm with S1 and S2. Abdomen: Positive bowel sounds x4 quadrants, no masses, no guarding, no tenderness. ??No hepatosplenomegaly. ??Abdomen is soft. Skin: Warm, dry, and pink. Neurological: Alert and oriented x3, speech is clear and gait is steady. Psychological: Pleasant, calm and cooperative. Assessment/Plan 1.??IBS (irritable bowel syndrome)??K58.9 Advised to start amiltypline. Discussed side effects and to call for worsening mood, depression andsuicidal thoughts.?? Advised will not see results for 4 weeks. Advised to take at bedtime as causesdrowsiness. Ordered: Follow-up Appointment Request [facility], *Est. 02/04/22 +/- 2 days, Future Order, after Colonoscopy, In Approximately, [facility] Gastroenterology Surgical Procedure Booking Request [facility], 01/21/22 8:30:00 EST, 02/19/22 10:00:00 EST, hematochezia,IBS (irritable bowel syndrome) Chronic diarrhea Hematochezia, Outpatient, Colonoscopy, Primary Procedure, , [place], [id number], [id number], [id number], [id number] ?? 2.??Chronic diarrhea??K52.9 As above.?? Will get pathology report for colonoscopy to see if there were signs of colitis in 2019.?? Colonoscopy ordered as patient having hematochezia. Ordered: Follow-up Appointment Request [facility], *Est. 02/04/22 +/- 2 days, Future Order, after Colonoscopy, In Approximately, [facility] Gastroenterology Surgical Procedure Booking Request [facility], 01/21/22 8:30:00 EST, 02/19/22 10:00:00 EST, hematochezia,IBS (irritable bowel syndrome) Chronic diarrhea Hematochezia, Outpatient, Colonoscopy, Primary Procedure, 30, MAC, 31, [place], [address], [id number], [id number], [id number] ?? 3.??Hematochezia??K92.1 Colonoscopy to assess for hemorrhoids, anal fissure, colitis or neoplasm as having increasing hematochezia. Ordered: Follow-up Appointment Request [facility], *Est. 02/04/22 +/- 2 days, Future Order, after Colonoscopy, In Approximately, [facility] Gastroenterology Surgical Procedure Booking Request [facility], 01/21/22 8:30:00 EST, 02/19/22 10:00:00 EST, hematochezia,IBS (irritable bowel syndrome) Chronic diarrhea Hematochezia, Outpatient, Colonoscopy, Primary Procedure, 30, MAC, 31, [place], [address], [id number], [id number], [phone] ?? 4.??Vomiting??R11.10 Advised amitypline as recommended by Dr. Chase.?? Discussed cannabis hyperemesis syndrome and advised abstaining from its use for 2 month's to see if this relieves her vomiting. ?? 5.??Marijuana use??F12.90 As above. ?? I will see patient 2 weeks after colonoscopy to discuss findings and make further recommendations. Problem List/Past Medical History Ongoing Allergic rhinitis AP (abdominal pain) Chronic diarrhea GERD (gastroesophageal reflux disease) Hematochezia Hypertriglyceridemia IBS (irritable bowel syndrome) Marijuana use Onychomycosis Psoriasis Vomiting Historical No qualifying data Procedure/Surgical History ??? section???Colonoscopy Medications No active medications Amitriptyline 10 mg nightly Allergies No Known Allergies Social History Alcohol Never Electronic Cigarette/Vaping Electronic Cigarette Use: Never. Substance Use Current, Marijuana Tobacco Former tobacco user Tobacco Use:. Family History Family Member(s): ?? MOTHER, at age: Unknown. Cause of : Electronically Signed on 01/21/22 08:39 AM Heidi Marc APRN Electronically Signed on 01/21/22 08:40 AM Heidi Marc APRN Patient Care team information Personnel Name: Jose Antonio Christian Address: Address: [address] [place], [place] [address] [place] [address]-
--- OUTSIDE RECORDS SUMMARY | 2023-03-06 13:17 | XMS_ITS | Continuity of Care Document ---
Author Name Unknown Organization [facility] Ambulatory Clinics Address [address] [place] [address] Care Team Providers Care Human Resources Consultant Name Role Phone Jose Antonio Christian Primary Care Physician Encounter [facility] NBR [id number] Date(s): 03/05/22 - 03/05/22 [facility] Ambulatory Clinics [address] [place], [place] [address] Encounter Diagnosis Chronic diarrhea(Discharge Diagnosis) - 03/05/22 GERD (gastroesophageal reflux disease)(Discharge Diagnosis) - 03/05/22 Internal hemorrhoids(Discharge Diagnosis) - 03/05/22 Discharge Disposition: Home or Self Care Attending Physician: Heidi Marc APRN Allergies, Adverse Reactions, Alerts No Known Allergies Assessment and Plan Future Appointments Functional Status 03/05/22 Recent Travel History No recent travel Other exposure to Infectious Disease Non e [...] Procedure Date Related Diagnosis Body Site Status Colonoscopy Biopsy 1 02/19/22 Comp leted Colonoscopy, flexible; diagn ostic, including collection of specimen(s) by brushing or washing, when performed (separate procedure) 02/18/22 Completed section Complete d Colonoscopy 2 Completed EGD - Esophagogastroduodenoscopy Completed 1auto-populated from documented surgical case done in [place] Vital Signs Most recent to oldest [Reference Range]: 1 Temperature Temporal Artery [36-38 Deg C ] 35.7 Deg C *LOW* (03/05/22 8:36 AM) Apical Heart Rate [60-100 bpm] 75 bpm (03/05/22 8:36 AM) Blood Pressure [90-140/60-90 mmHg] 122/7 2mmHg (03/05/22 8:36 AM) Weight 75.2 kg (03/05/22 8:36 AM) Weight Measured (lbs) 165.787 lb (03/05/22 8:36 AM) Social History Social History Type Response Tobacco Former tobacco user Tobacco Use:. Sex Physician Outpatient Note * Heidi Marc APRN: PERFORM Event Display: Office Clinic Note Physician Authored Date: [id number] DELACRUZALIA :1980 Age:41 years Sex:Female Visit Date:03/05/2022 Primary Care Physician: Jose Antonio Christian Chief Complaint follow up colonoscopy History of Present Illness Patient is a 41??-year-old female patient of Jose Antonio Christian DNP with over 10 years of intermittent diarrhea is referred for further evaluation and management. She is an established patient here today for follow up??of colonoscopy. ?? Patient reports at least 10 years of diarrhea described as nonbloody watery stool at least 3 days/week occasionally awakening her from sleep associated with tenesmus, crampy lower abdominal pain usually relieved by defecation. In November 2020 she began to have bright red blood per rectum and underwent colonoscopy at [facility] with banding of hemorrhoids. We do not have any prior endoscopy or imaging studies to review at this time. The patient was told that she should repeat her colonoscopy in 10 years.??From February to May the patient reported nonbloody watery diarrhea associated with nausea and vomiting which would awaken her from sleep. No hematemesis. Patient saw OFFICE MANAGER RECEPTIONIST in June of this year and had [...] that she is being referred to a camp guard. The patient believes that she was tested for celiac disease. On 05/24/2021 CMP was normal, mild leukocytosis with normal hemoglobin. No other labs were received. ?? Has intermittent abdominal pain, diarrhea with [place] Form 5 to 6 stools numerous times of the dayand night.?? She was having??a large amount of hematochezia. ??Now with a scant amount on the toilet paper.? Has last 30 pounds in past year with eliminating certain foods from her diet. ?? Weightis now stable.?? States she had 1 episode in the past month of vomiting at 3 AM. ??She has not tried anything other than Pepto-Bismol??or antinausea medication which??which have been effective.?? Shehas been trying Pepcid.?? She would like to be considered for SIBO testing. ?? 07/30/2021 celiac??was normal, CBC normal,??CRP less than 8 and sed rate less than 20. ??Calprotectin was not completed. ?? 06/18/2021 patient had pelvic ultrasound transvaginally showing numerous??cysts??on her cervix??and slightly thickened endometrium. ?? On 12/15/2019 patient had a colonoscopy that was unremarkable.?? Pathology report ruled out colitis. ?? On 02/19/2022 patient had a colonoscopy with random colon biopsies showing no signs of colitis.?? There was grade 1 internal hemorrhoids. ?? She has no first-degree relatives with GI cancers or inflammatory bowel disease Review of Systems Pertinent positives and negatives are discussed in HPI. Physical Exam Vitals & Measurements T:??35.7?C ??(Temporal Artery)?? HR:??75??(Apical)?? BP:??122/72?? SpO2:??99%?? WT:??75.2??kg?? General: Well-nourished well-developed??female??in no acute distress. HEENT: [...] is steady. Psychological: Pleasant, calm and cooperative. ?? Assessment/Plan 1.??Chronic diarrhea??K52.9 Discussed??findings of colonoscopy showing no signs of colitis.?? For colon cancer screening her next colonoscopy will be in 10 years, in 2032.?? She would like to have SIBO testing.?? Will refer to [facility] for breath testing??to assess for this condition.?? If positive will treat accordingly.?? If negative??we discussed the possibility of??going back into action IBS??with diarrhea.?? Would consider neuromodulation.?? See patient back in 6 weeks to discuss findings and make further recommendations. 2.??GERD (gastroesophageal reflux disease)??K21.9 Her symptoms??have been once monthly.?? We did Pepcid 20 mg??daily as needed. ??She??is taking thismore days than not??would recommend she take omeprazole??20 mg??once daily 30 minutes before evening meal. ??We will see patient back in 6 weeks to reassess. 3.??Internal hemorrhoids??K64.8 Bleeding has improved. ??Grade 1 internal hemorrhoids seen on??colonoscopy.?? If symptoms??worsen Iwould recommend she see general surgery for further evaluation??possible treatment. ??Recommend a high-fiber diet for now.?? Advised to avoid straining. Orders: Follow-up Appointment Request [facility], *Est. 04/16/22 +/- 7 days, Future Order, follow SIBO testing, In [facility], [facility] Gastroenterology Voice recognition software utilized which may result in minor office workforce planner error. Problem List/Past Medical History Ongoing Allergic rhinitis AP (abdominal pain) Chronic diarrhea GERD (gastroesophageal reflux disease) Hematochezia Hypertriglyceridemia IBS (irritable bowel syndrome) Marijuana use Onychomycosis Psoriasis Vomiting Historical No qualifying data Procedure/Surgical History ???Colonoscopy Biopsy (02/19/2022)???Colonoscopy, flexible; diagnostic, including collection of specimen(s) by brushing or washing, when performed (separate procedure) (02/19/2022)??? section???Colonoscopy???EGD - Esophagogastroduodenoscopy Medications No active medications Allergies No Known Allergies Social History Alcohol Never Electronic Cigarette/Vaping Electronic Cigarette Use: Never. Substance Use Current, Marijuana Tobacco Former tobacco user Tobacco Use:. Family History Daughter: History is negative Son: History is negative Family Member(s): ?? MOTHER, at age: Unknown. Cause of : Electronically Signed on 03/05/22 08:59 AM Heidi Marc APRN Patient Care team information Personnel Name: Jose Antonio Christian Address: Address: [address] [place] [id number]- [place]
--- OUTSIDE RECORDS SUMMARY | 2023-03-06 13:17 | XMS_ITS | Continuity of Care Document ---
Author Name Unknown Organization [facility] Address [address] [place] [id number] Care Team Providers Care Quality Assurance Qa Lab Analyst Name Role Phone Jose Antonio Christian Primary Care Physician [phone] Encounter [facility] NBR [id number] Date(s): 02/19/22 - 02/19/[address] [address]- Encounter Diagnosis Chronic diarrhea(Discharge Diagnosis) - 02/19/22 Hematochezia(Discharge Diagnosis) - 02/19/22 Discharge Disposition: Home f/u External Provider Attending Physician: Davis Chase MD Admitting Physician: Davis Chase MD Referring Physician: Davis Chase MD Allergies, Adverse Reactions, Alerts No Known Allergies Assessment and Plan Future Appointments Functional Status 02/19/22 ADLs Independent Family Member Travel History No recent t ravel Recent Travel History No recent travel Other exposure to Infectious Disease Non e 02/14/22 Living Situation Home independently Medications No Known Medications Problem List Condition [...] Status Colonoscopy Biopsy 1 02/19/22 Comp leted section Complete d Colonoscopy 2 Completed EGD - Esophagogastroduodenoscopy Completed 1auto-populated from documented surgical case done in [place] Vital Signs Most recent to oldest [Reference Range]: 1 2 3 Temperature Tympanic [36.6-37.9 Deg C] 36.4 Deg C *LOW* (02/19/22 11:45 AM) Temperature Temporal Artery [36-38 Deg C] 36.3 Deg C (02/19/22 1:35 PM) 36.4 Deg C (02/19/22 1:07 PM) Temperature Temporal Artery (DegF) [97.3-100 Deg F] 97.34 Deg F (02/19/22 1:35 PM) 97.52 Deg F (02/19/22 1:07 PM) Peripheral Pulse Rate [60-100 bpm] 67 bpm (02/19/22 1:35 PM) 80 bpm (02/19/22 1:30 PM) 71 bpm (02/19/22 1:15 PM) Heart Rate Monitored [60-100 bpm] 94 bpm (02/19/22 11:45 AM) Respiratory Rate [12-24 br/min] 17 br/min (02/19/22 11:45 AM) Blood Pressure [90-140/60-90 mmHg] 105/66mmHg (02/19/22 1:35 PM) 105/72mmHg (02/19/22 1:30 PM) 97/61mmHg (02/19/22 1:15 PM) Mean Arterial Pressure, Cuff [65-140 mmHg] 79 mmHg (02/19/22 1:35 PM) 83 mmHg (02/19/22 1:30 PM) 73 mmHg (02/19/22 1:15 PM) Mean Arterial Pressure Cuff 78 mmHg (02/19/22 1:35 PM) 83 mmHg (02/19/22 1:30 PM) 73 mmHg (02/19/22 1:15 PM) Blood Pressure Invasive [90-140/60-90 mmHg] 127/68mmHg (02/19/22 11:45 AM) Weight 72.570 kg (02/14/22 3:03 PM) Weight Dosing 72.570 kg (02/14/22 3:03 PM) Height 152.400 cm (02/14/22 3:03 PM) Height/Length Dosing 152.400 cm (02/14/22 3:03 PM) Social History Social History Type Response Tobacco Former tobacco user Tobacco Use:. Sex Hospital Discharge Instructions Patient Education 02/19/2022 12:21:56 Colonoscopy, Adult, Care After Colonoscopy, Adult, Care After This sheet gives you information about how to care for yourself after your procedure. Your health care provider may also give you more specific instructions. If you have problems or questions, contact your health care provider. What can I expect after the procedure? After the procedure, it is common to have: ??? A small amount of blood in your stool for 24 hours after the procedure. ??? Some gas. ??? Mild cramping or bloating of your abdomen. Follow these instructions at home: Eating and drinking ??? Drink enough fluid to keep your urine pale yellow. ??? Follow instructions from your health care provider about eating or drinking restrictions. ??? Resume your normal diet as instructed by your health care provider. Avoid heavy or fried foods that are hard to digest. Activity ??? Rest as told by your health care provider. ??? Avoid sitting for a long time without moving. Get up to take short walks every 1???2 hours. This is important to improve blood flow and breathing. Ask for help if you feel weak or unsteady. ??? Return to your normal activities as told by your health care provider. Ask your health care provider what activities are safe for you. Managing cramping and bloating ??? Try walking around when you have cramps or feel bloated. ??? Apply heat to your abdomen as told by your health care provider. Use the heat source that your health care provider recommends, such as a moist heat pack or a heating pad. ??? Place a towel between your skin and the heat source. ??? Leave the heat on for 20???30 minutes. ??? Remove the heat if your skin turns bright red. This is especially important if you are unable to feel pain, heat, or cold. You may have a greater risk of getting burned. General instructions ??? If you were given a sedative during the procedure, it can affect you for several hours. Do not drive or operate machinery until your health care provider says that it is safe. ??? For the first 24 hours after the procedure: ??? Do not sign important documents. ??? Do not drink alcohol. ??? Do your regular daily activities at a slower pace than normal. ??? Eat soft foods that are easy to digest. ??? Take zqxw-fua-edahhbo and prescription medicines only as told by your health care provider. ??? Keep all follow-up visits as told by your health care provider. This is important. Contact a health care provider if: ??? You have blood in your stool 2???3 days after the procedure. Get help right away if you have: ??? More than a small spotting of blood in your stool. ??? Large blood clots in your stool. ??? Swelling of your abdomen. ??? Nausea or vomiting. ??? A fever. ??? Increasing pain in your abdomen that is not relieved with medicine. Summary ??? After the procedure, it is common to have a small amount of blood in your stool. You may also have mild cramping and bloating of your abdomen. ??? If you were given a sedative during the procedure, it can affect you for several hours. Do not drive or operate machinery until your health care provider says that it is safe. ??? Get help right away if you have a lot of blood in your stool, nausea or vomiting, a fever, or increased pain in your abdomen. This information is not intended to replace advice given to you by your health care provider. Make sure you discuss any questions you have with your health care provider. Document Revised: 01/27/2020 Document Reviewed: 08/29/2019 [employer] Patient Education ?? 2021 [employer]. 02/19/2022 12:21:53 Irritable Bowel Syndrome, Adult Irritable Bowel Syndrome, Adult Irritable bowel syndrome (IBS) is a group of symptoms that affects the organs responsible for digestion (gastrointestinal or GI tract). IBS is not one specific disease. To regulate how the GI tract works, the body sends signals back and forth between the intestines and the brain. If you have IBS, there may be a problem with these signals. As a result, the GI tract does not function normally. The intestines may become more sensitive and overreact to certain things.This may be especially true when you eat certain foods or when you are under stress. There are four types of IBS. These may be determined based on the consistency of your stool (feces): ??? IBS with diarrhea. ??? IBS with constipation. ??? Mixed IBS. ??? Unsubtyped IBS. It is important to know which type of IBS you have. Certain treatments are more likely to be helpful for certain types of IBS. What are the causes? The exact cause of IBS is not known. What increases the risk? You may have a higher risk for IBS if you: ??? Are female. ??? Are younger than 40. ??? Have a family history of IBS. ??? Have a mental health condition, such as depression, anxiety, or post- traumatic stress disorder. ??? Have had a bacterial infection of your GI tract. What are the signs or symptoms? Symptoms of IBS vary from person to person. The main symptom is abdominal pain or discomfort. Othersymptoms usually include one or more of the following: ??? Diarrhea, constipation, or both. ??? Abdominal swelling or bloating. ??? Feeling full after eating a small or regular-sized meal. ??? Frequent gas. ??? Mucus in the stool. ??? A feeling of having more stool left after a bowel movement. Symptoms tend to come and go. They may be triggered by stress, mental health conditions, or certainfoods. How is this diagnosed? This condition may be diagnosed based on a physical exam, your medical history, and your symptoms. You may have tests, such as: ??? Blood tests. ??? Stool test. ??? X-rays. ??? CT scan. ??? Colonoscopy. This is a procedure in which your GI tract is viewed with a long, thin, flexible tube. How is this treated? There is no cure for IBS, but treatment can help relieve symptoms. Treatment depends on the type ofIBS you have, and may include: ??? Changes to your diet, such as: ??? Avoiding foods that cause symptoms. ??? Drinking more water. ??? Following a low-FODMAP (fermentable oligosaccharides, disaccharides, monosaccharides, and polyols) diet for up to 6 weeks, or as told by your health care provider. FODMAPs are sugars that are hard for some people to digest. ??? Eating more fiber. ??? Eating medium-sized meals at the same times every day. ??? Medicines. These may include: ??? Fiber supplements, if you have constipation. ??? Medicine to control diarrhea (antidiarrheal medicines). ??? Medicine to help control muscle tightening (spasms) in your GI tract (antispasmodic medicines). ??? Medicines to help with mental health conditions, such as antidepressants or tranquilizers. ??? Talk therapy or counseling. ??? Working with a diet and nutrition associate (dietitian) to help create a food plan that is right for you. ??? Managing your stress. Follow these instructions at home: Eating and drinking ??? Eat a healthy diet. ??? Eat medium-sized meals at about the same time every day. Do not eat large meals. ??? Gradually eat more fiber-rich foods. These include whole grains, fruits, and vegetables. This may be especially helpful if you have IBS with constipation. ??? Eat a diet low in FODMAPs. ??? Drink enough fluid to keep your urine pale yellow. ??? Keep a journal of foods that seem to trigger symptoms. ??? Avoid foods and drinks that: ??? Contain added sugar. ??? Make your symptoms worse. Dairy products, caffeinated drinks, and carbonated drinks can make symptoms worse for some people. General instructions ??? Take kbon-maz-aqurfkx and prescription medicines and supplements only as told by your health care provider. ??? Get enough exercise. Do at least 150 minutes of moderate-intensity exercise each week. ??? Manage your stress. Getting enough sleep and exercise can help you manage stress. ??? Keep all follow-up visits as told by your health care provider and therapist. This is important. Alcohol Use ??? Do not drink alcohol if: ??? Your health care provider tells you not to drink. ??? You are , may be , or are planning to become . ??? If you drink alcohol, limit how much you have: ??? 0???1 drink a day for women. ??? 0???2 drinks a day for men. ??? Be aware of how much alcohol is in your drink. In the [place] one drink equals one typical bottleof beer (12 oz), one-half glass of wine (5 oz), or one shot of hard liquor (1?? oz). Contact a health care provider if you have: ??? Constant pain. ??? Weight loss. ??? Difficulty or pain when swallowing. ??? Diarrhea that gets worse. Get help right away if you have: ??? Severe abdominal pain. ??? Fever. ??? Diarrhea with symptoms of dehydration, such as dizziness or dry mouth. ??? Bright red blood in your stool. ??? Stool that is black and tarry. ??? Abdominal swelling. ??? Vomiting that does not stop. ??? Blood in your vomit. Summary ??? Irritable bowel syndrome (IBS) is not one specific disease. It is a group of symptoms that affects digestion. ??? Your intestines may become more sensitive and overreact to certain things. This may be especially true when you eat certain foods or when you are under stress. ??? There is no cure for IBS, but treatment can help relieve symptoms. This information is not intended to replace advice given to you by your health care provider. Make sure you discuss any questions you have with your health care provider. Document Revised: 10/04/2020 Document Reviewed: 10/04/2020 Else[employer] Patient Education ?? 2021 [employer] Discharge instructions * Camilla London: PERFORM Event Display: Discharge Instructions Authored Date: [id number] ALIA DELACRUZ :1980 Age:41 years Sex:Female Visit Date:02/19/2022 Primary Care Physician: [facility] Discharge Instructions We would like to thank you for allowing us to assist you with your healthcare needs. The following includes patient education materials and information regarding your injury/illness. After you leave the hospital, you may get your health information including your test results, physician notes and discharge information by accessing your Patient Portal. Your Next Steps Discharge Orders Discharge Patient Instructions, Call with any additional questions or concerns Discharge Patient Instructions, Call or come to emergency department for dizziness Discharge Patient Instructions, Call or come to emergency department chest pain, or shortness of breath Discharge Patient Instructions, Call or come to emergency department for fever greater than 100 ??F Discharge Patient Instructions, You should not be responsible for the care of others Discharge Patient Instructions, Do not sign any contracts, make any major decisions, or drive or operate machinery for 24 hours Discharge Patient Instructions, A light first meal may feel better in your stomach Discharge Patient Instructions, It is important that a responsible adult drive you home today Discharge Patient Instructions, Call or come to emergency department if vomiting blood or having black bowel movements, rectal bleeding or passing blood clots Discharge Patient Instructions, Passing gas rectally and belching is normal Discharge Patient Instructions, Cramping and abdominal bloating should subside in 1 hour or so Discharge Patient Instructions, Call or come to emergency department if having unusual pain or severe abdominal pain Discharge Patient Instructions, You may experience some gas cramps and abdominal bloating Discharge Patient Instructions, Avoid alcohol, tranquilizers, sleeping pills, or cold medicines for24 hours Discharge Patient Instructions, You may resume your normal diet and activity in 24 hours Scheduled Future Appointments Thursday 8:30 AM EST ?? Your Summary Your Care Team Admitting Physician - Davis Chase MD Attending Physician - Davis Chase MD Primary Care Physician - Jose Antonio Christian Referring Physician - Davis Chase MD Your Diagnosis Chronic diarrhea Hematochezia Problems Ongoing - Any problem that you are currently receiving treatment for. Allergic rhinitis AP (abdominal pain) Chronic diarrhea GERD (gastroesophageal reflux disease) Hematochezia Hypertriglyceridemia IBS (irritable bowel syndrome) Marijuana use Onychomycosis Psoriasis Vomiting Procedures History ???Colonoscopy Biopsy (02/19/2022)???EGD - Esophagogastroduodenoscopy Discharge Vitals Temperature??(Temporal Artery) 97.5 ??F (36.4 ??C) Heart Rate??(Peripheral) 71 Respiratory Rate?? 17 Blood Pressure?? 97/61?? Blood Pressure?? 127/68(Line)?? Allergies No Known Allergies Education Materials Colonoscopy, Adult, Care After This sheet gives you information about how to care for yourself after your procedure. Your health care provider may also give you more specific instructions. If you have problems or questions, contact your health care provider. What can I expect after the procedure? After the procedure, it is common to have: ? A small amount of blood in your stool for 24 hours after the procedure. ? Some gas. ? Mild cramping or bloating of your abdomen. Follow these instructions at home: Eating and drinking ? Drink enough fluid to keep your urine pale yellow. ? Follow instructions from your health care provider about eating or drinking restrictions. ? Resume your normal diet as instructed by your health care provider. Avoid heavy or fried foods thatare hard to digest. Activity ? Rest as told by your health care provider. ? Avoid sitting for a long time without moving. Get up to take short walks every 1???2 hours. This isimportant to improve blood flow and breathing. Ask for help if you feel weak or unsteady. ? Return to your normal activities as told by your health care provider. Ask your health care provider what activities are safe for you. Managing cramping and bloating ? Try walking around when you have cramps or feel bloated. ? Apply heat to your abdomen as told by your health care provider. Use the heat source that your health care provider recommends, such as a moist heat pack or a heating pad. ? Place a towel between your skin and the heat source. ? Leave the heat on for 20???30 minutes. ? Remove the heat if your skin turns bright red. This is especially important if you are unable to feel pain, heat, or cold. You may have a greater risk of getting burned. General instructions ? If you were given a sedative during the procedure, it can affect you for several hours. Do not drive or operate machinery until your health care provider says that it is safe. ? For the first 24 hours after the procedure: ? Do not sign important documents. ? Do not drink alcohol. ? Do your regular daily activities at a slower pace than normal. ? Eat soft foods that are easy to digest. ? Take vuwa-obg-tcdipjs and prescription medicines only as told by your health care provider. ? Keep all follow-up visits as told by your health care provider. This is important. Contact a health care provider if: ? You have blood in your stool 2???3 days after the procedure. Get help right away if you have: ? More than a small spotting of blood in your stool. ? Large blood clots in your stool. ? Swelling of your abdomen. ? Nausea or vomiting. ? A fever. ? Increasing pain in your abdomen that is not relieved with medicine. Summary ? After the procedure, it is common to have a small amount of blood in your stool. You may also have mild cramping and bloating of your abdomen. ? If you were given a sedative during the procedure, it can affect you for several hours. Do not drive or operate machinery until your health care provider says that it is safe. ? Get help right away if you have a lot of blood in your stool, nausea or vomiting, a fever, or increased pain in your abdomen. This information is not intended to replace advice given to you by your health care provider. Make sure you discuss any questions you have with your health care provider. Document Revised: 01/27/2020 Document Reviewed: 08/29/2019 [employer] Patient Education ?? 2021 [employer] Irritable Bowel Syndrome, Adult Irritable bowel syndrome (IBS) is a group of symptoms that affects the organs responsible for digestion (gastrointestinal or GI tract). IBS is not one specific disease. To regulate how the GI tract works, the body sends signals back and forth between the intestines and the brain. If you have IBS, there may be a problem with these signals. As a result, the GI tract does not function normally. The intestines may become more sensitive and overreact to certain things.This may be especially true when you eat certain foods or when you are under stress. There are four types of IBS. These may be determined based on the consistency of your stool (feces): ? IBS with diarrhea. ? IBS with constipation. ? Mixed IBS. ? Unsubtyped IBS. It is important to know which type of IBS you have. Certain treatments are more likely to be helpful for certain types of IBS. What are the causes? The exact cause of IBS is not known. What increases the risk? You may have a higher risk for IBS if you: ? Are female. ? Are younger than 40. ? Have a family history of IBS. ? Have a mental health condition, such as depression, anxiety, or post-traumatic stress disorder. ? Have had a bacterial infection of your GI tract. What are the signs or symptoms? Symptoms of IBS vary from person to person. The main symptom is abdominal pain or discomfort. Othersymptoms usually include one or more of the following: ? Diarrhea, constipation, or both. ? Abdominal swelling or bloating. ? Feeling full after eating a small or regular-sized meal. ? Frequent gas. ? Mucus in the stool. ? A feeling of having more stool left after a bowel movement. Symptoms tend to come and go. They may be triggered by stress, mental health conditions, or certainfoods. How is this diagnosed? This condition may be diagnosed based on a physical exam, your medical history, and your symptoms. You may have tests, such as: ? Blood tests. ? Stool test. ? X-rays. ? CT scan. ? Colonoscopy. This is a procedure in which your GI tract is viewed with a long, thin, flexible tube. How is this treated? There is no cure for IBS, but treatment can help relieve symptoms. Treatment depends on the type ofIBS you have, and may include: ? Changes to your diet, such as: ? Avoiding foods that cause symptoms. ? Drinking more water. ? Following a low-FODMAP (fermentable oligosaccharides, disaccharides, monosaccharides, and polyols) diet for up to 6 weeks, or as told by your health care provider. FODMAPs are sugars that are hard for some people to digest. ? Eating more fiber. ? Eating medium-sized meals at the same times every day. ? Medicines. These may include: ? Fiber supplements, if you have constipation. ? Medicine to control diarrhea (antidiarrheal medicines). ? Medicine to help control muscle tightening (spasms) in your GI tract (antispasmodic medicines). ? Medicines to help with mental health conditions, such as antidepressants or tranquilizers. ? Talk therapy or counseling. ? Working with a diet and nutrition associate (dietitian) to help create a food plan that is right for you. ? Managing your stress. Follow these instructions at home: Eating and drinking ? Eat a healthy diet. ? Eat medium-sized meals at about the same time every day. Do not eat large meals. ? Gradually eat more fiber-rich foods. These include whole grains, fruits, and vegetables. This may be especially helpful if you have IBS with constipation. ? Eat a diet low in FODMAPs. ? Drink enough fluid to keep your urine pale yellow. ? Keep a journal of foods that seem to trigger symptoms. ? Avoid foods and drinks that: ? Contain added sugar. ? Make your symptoms worse. Dairy products, caffeinated drinks, and carbonated drinks can make symptoms worse for some people. General instructions ? Take cdsp-gmr-gdpiaii and prescription medicines and supplements only as told by your health care provider. ? Get enough exercise. Do at least 150 minutes of moderate-intensity exercise each week. ? Manage your stress. Getting enough sleep and exercise can help you manage stress. ? Keep all follow-up visits as told by your health care provider and therapist. This is important. Alcohol Use ? Do not drink alcohol if: ? Your health care provider tells you not to drink. ? You are , may be , or are planning to become . ? If you drink alcohol, limit how much you have: ? 0???1 drink a day for women. ? 0???2 drinks a day for men. ? Be aware of how much alcohol is in your drink. In the [place] one drink equals one typical bottle of beer (12 oz), one-half glass of wine (5 oz), or one shot of hard liquor (1?? oz). Contact a health care provider if you have: ? Constant pain. ? Weight loss. ? Difficulty or pain when swallowing. ? Diarrhea that gets worse. Get help right away if you have: ? Severe abdominal pain. ? Fever. ? Diarrhea with symptoms of dehydration, such as dizziness or dry mouth. ? Bright red blood in your stool. ? Stool that is black and tarry. ? Abdominal swelling. ? Vomiting that does not stop. ? Blood in your vomit. Summary ? Irritable bowel syndrome (IBS) is not one specific disease. It is a group of symptoms that affects digestion. ? Your intestines may become more sensitive and overreact to certain things. This may be especially true when you eat certain foods or when you are under stress. ? There is no cure for IBS, but treatment can help relieve symptoms. This information is not intended to replace advice given to you by your health care provider. Make sure you discuss any questions you have with your health care provider. Document Revised: 10/04/2020 Document Reviewed: 10/04/2020 Elsevier Patient Education ?? 2021 [employer] Inc. Patient Name:ALIA DELACRUZ Tye I have received this information and my questions have been answered. Patient/Compressed Gases Tester Name: Patient/Compressed Gases Tester Signature: Relationship to Patient: Witness Name/Signature: Date: Electronically Signed on: 02/19/2022 13:29 ESTSigned by:PALMA * Event Display: Discharge Instructions History and physical note * Event Display: History and Physical Update * Davis Chase MD: PERFORM Event Display: History and Physical Authored Date: [id number] ALIA DELACRUZ Tye :1980 Age:41 years Sex:Female Visit Date:02/19/2022 Primary Care Physician: Jose Antonio Christian History of Present Illness 41-year-old female with average risk for colorectal cancer??complains of??passage of??bright red blood per rectum with clots??associated with diarrhea??and rectal pain.?? She has a history of prior hemorrhoid banding. Physical Exam Vitals & Measurements T:??36.4?C ??(Tympanic)?? HR:??94??(Monitored)?? RR:??17?? BP:??127/68(Line)?? SpO2:??100%?? Obese white female no acute distress Lungs: Clear to auscultation bilaterally Heart: Regular rhythm S1-S2 Abdomen: Soft nontender Assessment/Plan 1.??Chronic diarrhea??K52.9 Colonoscopy to rule out colitis. 2.??Hematochezia??K92.1 Orders: Normal Saline Flush, 10 mL, IV Flush, Injection, As Directed, PRN dragline oiler, First Dose: 02/19/22 11:49:00 EST, Routine Sodium Chloride 0.9% 1,000 mL, Total Volume (mL): 1,000, 1,000 mL, Soln-IV, IV, 50 mL/hr, Start Date: 02/19/22 11:49:00 EST, 72.57 kg, Populate Charting Weight From Order, 1.75, m2 Blood Glucose Monitoring POC RE, 02/19/22 11:49:00 EST, Stop date 02/19/22 11:49:00 EST NPO, 02/19/22 11:49:00 EST, Constant Indicator Obtain consent, 02/19/22 11:49:00 EST, Constant Order Peripheral IV Insertion, 02/19/22 11:49:00 EST Saline Lock Convert From IV, 02/19/22 11:49:00 EST, Stop date 02/19/22 11:49:00 EST Vital Signs, 02/19/22 11:49:00 EST, Stop date 02/19/22 11:49:00 EST, Routine Problem List/Past Medical History Ongoing Allergic rhinitis AP (abdominal pain) Chronic diarrhea GERD (gastroesophageal reflux disease) Hematochezia Hypertriglyceridemia IBS (irritable bowel syndrome) Marijuana use Onychomycosis Psoriasis Vomiting Historical No qualifying data Procedure/Surgical History ??? section???Colonoscopy???EGD - Esophagogastroduodenoscopy Medications Inpatient Normal Saline Flush, 10 mL, IV Flush, As Directed, PRN Sodium Chloride 0.9% 1,000 mL, 1000 mL, IV Home No active home medications Allergies No Known Allergies Social History Alcohol Never Electronic Cigarette/Vaping Electronic Cigarette Use: Never. Substance Use Current, Marijuana Tobacco Former tobacco user Tobacco Use:. Family History Family Member(s): ?? MOTHER, at age: Unknown. Cause of : Electronically Signed on 02/19/22 12:40 PM Davis Chase MD Patient Care team information Personnel Name: Jose Antonio Christian Address: Address: [address] [place] [address]
== END 2023-03-05 14:33 | disposition home or self-care (01) ==
LOC: NCHCN 14:32
PROVIDERS: PCP Nurse Practitioner Family; Visit Provider Nurse Practitioner Family
DX: E87.6 Hypokalemia (principal)
CPT/HCPCS: 80053

== ENCOUNTER 2024-02-04 15:29 | Outpatient (REF) | payer MEDICAID, SELFPAY ==
[2024-02-04 14:48] LABS: Abs Immature Grans 0.03 10^3/uL (0.0-0.06); Absolute Basophil Count 0.03 10^3/uL (0.0-0.2); Absolute Eosinophil Count 0.02 10^3/uL (0.0-0.7); Absolute Lymphocyte Count 1.99 10^3/uL (1.2-3.4); Absolute Monocyte Count 0.77 10^3/uL (0.1-0.8); Basophils % 0.3 %; Eosinophils % 0.2 %; HCT 38.8 % (36.0-46.0); HGB 12.6 g/dL (11.2-15.7); Immature Grans % 0.3 %; Lymphocytes % 17.7 %; MCH 27.5 pg (27.0-33.0); MCHC 32.5 % (32.0-36.0); MCV 85 fL (80-95); MPV 11.5 fL (8.0-11.0); Monocytes % 6.9 %; Neutrophils % 74.6 %; Platelet Count 265 10^3/uL (130-400); RBC 4.59 10^6/uL (3.93-5.22); RDW 15.7 % (11.7-14.6); RDW-SD 48.5 fL; WBC 11.22 10^3/uL (4.4-10.8)
[2024-02-04 14:51] LABS: Absolute Neutrophil Count 8.37 10^3/uL (1.2-6.7)
[2024-02-04 15:16] LABS: ALT 18 U/L (14-59); AST 14 U/L (15-37); Albumin 4.1 g/dL (3.4-5.0); Alkaline Phosphatase 106 U/L (46-116); Anion Gap 12.9 mmol/L (3-11); BUN 12 mg/dL (7-18); Bilirubin, Total 0.25 mg/dL (0.2-1.0); CO2 24.1 mmol/L (21.0-32.0); CREATININE 0.7 mg/dL (0.55-1.02); Calcium 9.2 mg/dL (8.5-10.1); Chloride 105 mmol/L (98-107); Glucose 108 mg/dL (74-106); Potassium 3.3 mmol/L (3.5-5.1); Sodium 142 mmol/L (136-145); TSH (W/Ref FT4) 2.16 uIU/mL (0.36-3.74); Total Protein 7.5 g/dL (6.4-8.2)
--- OUTSIDE RECORDS SUMMARY | 2024-02-04 15:31 | XMS_ITS | Encounter Summary ---
Author Organization [facility] [place] [address] Care Team Providers Care Cone Cleaner Name Role Phone Helena Can APRN Primary Care Provider [phone] Reason for Visit * Reason Comments Acne Dermatitis * Consultation (Priority 1) - Closed Specialty Diagnoses / Procedures Referred By Ana farias Referred To Contact Dermatology Diagnoses Cystic acne Helena Can APRN [address] [place] [address] [facility] [address] [place] [address] Referral ID Status Reason Start Date Expiration Date V isits Requested Visits Authorized [id number] Closed Consult, Test & Treat PCP Updated and/or Approved 08/26/2022 08/26/2023 12 12 Encounter Details Date Type Department Care Team (Late st Contact Info) Description 12/11/2022 3:30 PM EDT Office Visit Dermatology at [facility] [address] [place] [id number] Romero Eddy MD High risk medication use; Onychomycosis; Acne excoriee; Tinea manuum; Tinea pedis of both feet Social History Tobacco Use Types Packs/Day Years Used Date Smoking Tobacco: Former Cigarettes Q uit: 2013 Smokeless Tobacco: Never Tobacco Cessation:Counseling Given: Not Answered Alcohol Use Standard Drinks/Week Comments Not Currently 0 (1 standard drink = 0.6 oz pur e alcohol) Sex and Gender Information Value Date Recorded Sex Assigned at Not on file Gender Identity Not on file Sexual Orientation Not on file documented as of this encounter Progress Notes * Ani Eisenberg RN - 12/11/2022 3:30 PM EDT Images from the original note were not included. DEPARTMENT OF DERMATOLOGY Medical Dermatology Clinic Provider: Romero Eddy MD Patient's preferred name Dimple Preferred contact method for results [x]Phone [x]myD-H []Letter Detailed phone message OK? Yes Are there any other people with whom we may discuss your care? Shukri Cooper Past Medical History Date, location, treatment Melanoma No Dysplastic nevi No SCC No BCC No AKs No UV Exposure & Protection Other relevant personal history No Family History Details Melanoma No NMSC No Other relevant family history No Social History Occupation: Not currently employed Alcohol use: None Pre-Procedure Screening Details Allergy to lidocaine, epinephrine, Dermabond, chlorhexidine, or adhesives No Bleeding disorder or blood thinners No Pacemaker, defibrillator, deep brain stimulator, cochlear implant No History of Present Illness: Dimple Simon is a 42 y.o. Patient is referred to the clinic at the request of Helena Can, for evaluation of a - Thickened nail of the right thumb. Also reports seeing small blisters on the right thumb and first finger. - Adult-onset cystic acne on the lower face, neck, and upper back. This has been a problem the past several years. She did not have teenage acne. Her PCP prescribed clindamycin-BPO gel, which didn't clear her skin. She has not tried any other prescriptions. She is not on hormones and does not have an IUD. She is not on a oral contraceptive. She endorses night sweats, which she thinks is symptomatic of her being renu-menopausal. Review of Systems: General: Feeling well. Skin: No other skin concerns. Medications: Reviewed in eD-H Allergies: Reviewed in eD-H Skin Examination: Focused skin examination of the hands was normal with the exception of the findings below. Assessment/Plan A. Onychomycosis - Thickened, yellowed nails with distal onycholysis of the right thumb and all tentoes. Patient endorses subungual debris. - Discussed that this is caused by fungus. - Noted that there are limited treatment options. Patient is motivated to treat as condition is bothersome to her. - Patient denies hx of liver problems (included hepatitis) or abnormal liver function tests. - Labs: CBC, CMP - I will contact her with results. - Start Rx terbinafine 250 mg (D: 60 tabs): Take 1 tablet by mouth daily for 2 months. Cautioned rare but serious side effects of terbinafine, including hepatic toxicity. Counseled patient to avoid drinking alcohol. The decision was made to start her on terbinafine and send her for baseline blood work now, before beginning the terbinafine treatment. If there is any relevant blood work abnormalities, she will be told to stop the terbinafine. She will be seen again in about 6 weeks, at which timethe condition will be reevaluated and follow up blood work will be obtained. B. Tinea Manuum, Tinea Pedis (Two Foot, One Hand) - Scale on the right hand and plantar feet including in the webspaces between toes. - Discussed that this athlete's foot and caused by fungus. - Start OTC Lamisil cream: Apply topically to right hand and both feet (including between toes and around toenails) 1-2x/day for at least 3 weeks until clear. May continue using 2x/week for maintenance. - Recommended treating footwear with OTC anti-fungal powder or spray. - Follow up with new canvas shrinker, as planned. C. Acne Excoriee - Numerous red macules and patches on the face (L>R). There is a couple of papules but they are probably due to the scratching. Indeed, most lesions are oddly shaped, which may besecondary to her scratching. There are few papules and closed comedones on the left orthodox. On the back of the neck, are some excoriations and hypopigmented macules that seem to be the remnant of scra tched lesions. Therefore, many of the lesions have occurred weeks or months ago. - Start Rx mupirocin (Bactroban) 2% ointment: Apply topically to affected areas once daily for 4 weeks or until resolved. Figure 1 Photo(s) taken and charted with patient's verbal consent. Other: OTC skin products discussed RTC: 6 weeks for follow up of the above and repeat labs []Note routed to press secretary []Recall placed in scheduling system [x]Appointment scheduled at checkout Scribe attestation: Ani Eisenberg RN has performed the documentation for this encounter in the presence of and acting as a scribe for Romero Eddy MD. I performed the above scribed service and agree with the accuracy of the documentation in this encounter. Reviewed and signed by: Romero Eddy MD Dermatology [facility] documented in this encounter Plan of Treatment Not on file documented as of this encounter Procedures Procedure Name Priority Date/Time Associated Diagnosis Comments SPECIMEN TO PATHOLOGY Routine 12/11/2022 4:51 PM EDT Onychomycosis HEMOGRAM Routine 12/11/2022 4:45 PM EDT High risk medication use DIFFERENTIAL, AUTOMATED Routine 12/11/2022 4:45 PM EDT High risk medication use CBC (WITH DIFF) Routine 12/11/2022 4:45 PM EDT High risk medication use COMPREHENSIVE METABOLIC PANEL Routine 12/11/2022 4:45 PM EDT High risk medication use SURGICAL PATHOLOGY REPORT Routine 12/11/2022 3:50 PM EDT documented in this encounter Results * Specimen to Pathology (12/11/2022 4:51 PM EDT) AP Specimen 12/11/2022 4:51 PM EDT 12/11/2022 4:51 PM EDT Narrative [facility] - 12/11/2022 4:51 PM EDT Specimen requisition ordered. ??Separate Pathology report to follow Romero Eddy MD PATHOLOGY/CYTOLOGY O RDERABLES [facility] [place] [address] * Differential, Automated (12/11/2022 4:45 PM EDT) Neutrophil % 58.3 % [facility] Neutrophil Absolute 4.74 1.70 - 6.10 x10(3)/mcL [facility] Lymph % 33.0 % [facility] Lymphocytes Abs 2.7 0.9 - 3.2 x10(3)/[facility] Monocyte % 7.0 % [facility] Monocyte Abs 0.6 0.3 - 0.9 x10(3)/[facility] Eos % 1.1 % [facility] Eosinophils Abs 0.1 0.0 - 0.4 x10(3)/[facility] Basophil % 0.4 % [facility] Baso Absolute 0.0 0.0 - 0.1 x10(3)/[facility] Immature Gran % 0.20 % [facility] Comment: Immature granulocytes(IG's)percentage and absolute count will include metamyelocytes, myelocytes, and promyelocytes. Blood smears from CBCs yielding IG's will be scanned manually for concordance. If this scan disagrees with the automated IG or if promyelocytes are noted, a manual differential will be performed. Immature Gran Absolute 0.02 0.00 - 0.04 x10(3)/[facility] Blood 12/11/2022 4:45 PM EDT 12/11/2022 5:00 PM EDT Narrative Resulting Agency Comment Spec In Lab Romero Eddy MD HEMATOLOGY ORDERABLE S [facility] [place] [address] * Hemogram (12/11/2022 4:45 PM EDT) White Blood Cell 8.1 4.0 - 9.5 x10(3)/[facility] Red Blood Cell 4.38 4.00 - 5.21 x10(6)/[facility] Hemoglobin 13.1 11.7 - 15.5 g/dL [facility] Hematocrit 38.5 35.7 - 45.8 % [facility] Mean Cell Volume 87.9 82.6 - 94.4 fL [facility] Mean Cell Hemoglobin 29.9 27.1 - 32.0 pg [facility] Mean Cell Hemoglobin Concentration 34.0 31.7 - 35.0 g/dL [facility] Platelet 265 145 - 357 x10(3)/mcL [facility] RDW Standard Deviation 43.1 37.0 - 46.0 fL [facility] RDW coefficient of variation 13.3 11.5 - 14.1 % [facility] Mean Platelet Volume 10.8 7.6 - 12.9 fL [facility] NRBC% auto 0.0 % [facility] NRBC Absolute 0.000 0.000 - 0.000 x10(3)/[facility] Blood 12/11/2022 4:45 PM EDT 12/11/2022 5:00 PM EDT Narrative Resulting Agency Comment Spec In Lab Romero Eddy MD HEMATOLOGY ORDERABLE S [facility] [place] [address] * (ABNORMAL) Comprehensive metabolic panel (non-fasting) (12/11/2022 4:45 PM EDT) Glucose 114 65 - 199 mg/dL [facility] Comment:Diabetes: >=200 mg/d L plus symptoms Blood Urea Nitrogen 11 8 - 18 mg/dL [facility] Creatinine 0.52(L) 0.70 - 1.20 mg/dL [facility] Sodium 138 135 - 145 mmol/L [facility] Potassium 3.2(L) 3.5 - 5.0 mmol/L [facility] Comment: Please note: ??Patients with WBC >100,000 may have falsely elevated Potassium levels. ??For accurate Potassium quantification in these patients send serum separator tube (gold top) for subsequent determinations. ??Contact the Clinical Chemistry Laboratory if there are any questions. Chloride 103 98 - 107 mmol/L [facility] Carbon Dioxide 23 22 - 31 mmol/L [facility] Anion Gap 12 5 - 15 mmol/L [facility] Calcium 9.6 8.5 - 10.5 mg/dL [facility] Protein, Total 7.0 6.1 - 8.0 g/dL [facility] Albumin 4.3 3.2 - 5.2 g/dL [facility] Aspartate Aminotransferase 12 0 - 30 unit/L [facility] Alanine Aminotransferase 9 0 - 30 unit/L [facility] Alkaline Phosphatase 82 35 - 105 unit/L [facility] Bilirubin, Total <0.2(L) 0.2 - 1.3 mg/dL [facility] Est Glomerular Filtration Rate 118 >=60 mL/min/1. 73 m?? [facility] Comment: This patient's estimated GFR was calculated using the 2020 CKD-EPI equation. The estimated GFR can vary from the measured GFR by up to 30% in the absence of rapidly changing kidney function. Assessment of the estimated GFR is not appropriate when creatinine concentrations are rapidly changing. For clinical situations in which a more precise estimate of GFR is necessary, consider alternative methods of GFR estimation such as a 24-hour urine creatinine clearance. Assignment of CKD stage 1-5 for patients with an eGFR near the transition point between stages may be based on clinical assessment of muscle mass and symptoms in addition to eGFR. Blood 12/11/2022 4:45 PM EDT 12/11/2022 5:00 PM EDT Narrative Resulting Agency Comment Spec In Lab Romero Eddy MD CHEMISTRY ORDERABLES [facility] [place] [address] * Surgical Pathology Report (12/11/2022 3:50 PM EDT) Final Diagnosis [id number] ? Location: [facility] The signing pathologist has (i) examined the relevant preparation(s) for the specimen(s) and (ii) rendered or confirmed the diagnosis(es). . ?Surgical Pathology DIAGNOSIS Right thumbnail, clipping: - ??Onychomycosis (see Discussion) Electronically signed by: ?Crow STEWARD, PhD, [place] Verified: ??12/18/2022 12:18 ??Dermatopathol ogist Performed at: ??-[facility] Dept. of Pathology, [place] [address] Shrimp Peeling Machine Tender: Niraj Padron MD, FCAP, ??CLIA Certificate: [id number] DISCUSSION Numerous bacteria, abundant PAS+ fungal spore forms and rare hyphal forms are identified. SPECIMEN(S) SUBMITTED A - Right thumbnail, biopsy (1) CLINICAL INFORMATION Biopsy clipping of right thumb nail plate please look for fungal elements by special stains. SPECIMEN PROCESSING A - Labeled/Fixativ e: Patient demographics, formalin. Quantity/Size: Single, 0.8 x 0.4 x 0.2 cm. Tissue Description: Thakur-mcdonough nail clipping. Sections/Proces sing: Entirely submitted in 1 cassette labeled A1. ??pps 12/18/2022 12:18 PM EDT [facility] NAIL SPECIMEN / Unknown 12/11/2022 3:50 PM EDT 12/11/2022 3:50 PM EDT Romero Eddy MD PATHOLOGY/CYTOLOGY O RDERABLES [facility] [address] [place] [address] documented in this encounter Visit Diagnoses Diagnosis High risk medication use Encounter for long-term (current) use of other medications Onychomycosis Dermatophytosis of nail Acne excoriee Other acne Tinea manuum Dermatophytosis of hand Tinea pedis of both feet documented in this encounter Care Teams Cone Cleaner Relationship Specialty Start Date End Date Helena Can, ACTIVATED SLUDGE ATTENDANT [place] [address] PCP - General Family Medicine 09/09/22 documented as of this encounter
--- OUTSIDE RECORDS SUMMARY | 2024-02-04 15:31 | XMS_ITS | Encounter Summary ---
Author Organization [facility] [place] [address] Care Team Providers Care Manager Of Marketing Name Role Phone Helena Can APRN Primary Care Provider Encounter Details Date Type Department Care Team (Latest Contact Info) Description 12/11/2022 Travel Social History Tobacco Use Types Packs/Day Years Used Date Smoking Tobacco: Former Cigarettes Q uit: 2013 Smokeless Tobacco: Never Alcohol Use Standard Drinks/Week Comments Not Currently 0 (1 standard drink = 0.6 oz pur e alcohol) Sex and Gender Information Value Date Recorded Sex Assigned at Not on file Gender Identity Not on file Sexual Orientation Not on file documented as of this encounter Plan of Treatment Not on file documented as of this encounter Visit Diagnoses Not on filedocumented in this encounter Care Teams Manager Of Marketing Relationship Specialty Start Date End Date Helena Can APRN [address] [place] [address] [place] [address] PCP - General Family Medicine 09/09/22 documented as of this encounter
--- OUTSIDE RECORDS SUMMARY | 2024-02-04 15:31 | XMS_ITS | Encounter Summary ---
Author Organization [facility] [place] [address] Care Team Providers Care Manager Employee Relations Name Role Phone None Primary Care Provider Unavailabl e Reason for Referral * Consultation (Priority 1) - Closed Specialty Diagnoses / Procedures Referred By Ana farias Referred To Contact Dermatology Diagnoses Cystic acne Helena Can APRN [address] [place] [address] [facility] Dermatology [address] [place] [address] Referral ID Status Reason Start Date Expiration Date V isits Requested Visits Authorized [id number] Closed Consult, Test & Treat PCP Updated and/or Approved 08/26/2022 08/26/2023 12 12 Encounter Details Date Type Department Care Team (Late st Contact Info) Description 08/26/2022 Transcribe Orders eDH Incoming Referrals [phone] Helena Can APRN [address] [place], [place] [id number] Cystic acne Social History Tobacco Use Types Packs/Day Years Used Date Smoking Tobacco: Never Smokeless Tobacco: Never Alcohol Use Standard Drinks/Week Comments Not Currently 0 (1 standard drink = 0.6 oz pur e alcohol) Sex and Gender Information Value Date Recorded Sex Assigned at Not on file Gender Identity Not on file Sexual Orientation Not on file documented as of this encounter Plan of Treatment Scheduled Referrals Name Type Priority Associated Diagnoses Order Schedule Referral to Dermatology Outpatient Referral Routine Cystic acne Ordered: 08/26/2022 documented as of this encounter Visit Diagnoses Diagnosis Cystic acne Other acne documented in this encounter Care Teams Manager Employee Relations Relationship Specialty Start Date End Date None None PCP - General 06/23/22 09/08/22 documented as of this encounter
--- OUTSIDE RECORDS SUMMARY | 2024-02-04 15:31 | XMS_ITS | Encounter Summary ---
[place] [address] Care Team Providers Care Retort Furnace Helper Name Role Phone None Primary Care Provider Unavailabl e Reason for Visit * Diagnostic Test (Routine) - Closed Specialty Diagnoses / Procedures Referred By Ana farias Referred To Contact Gastroenterology Diagnoses Diarrhea, unspecified type HBT - glucose - diarrhea Procedures Breath Hydrogen Test Edwige Sidhu PA [facility] [place] [address] [facility] [address] [place] [address] Referral ID Status Reason Start Date Expiration Date V isits Requested Visits Authorized [id number] Closed Consult, Test & Treat 06/13/2022 06/13/2023 1 1 Encounter Details Date Type Department Care Team (Latest Contact Info) Description 08/13/2022 12:00 PM EDT Procedure [place] [address] Diarrhea, unspecified type Social History Tobacco Use Types Packs/Day Years Used Date Smoking Tobacco: Never Smokeless Tobacco: Never Alcohol Use Standard Drinks/Week Comments Not Currently 0 (1 standard drink = 0.6 oz pur e alcohol) Sex and Gender Information Value Date Recorded Sex Assigned at Not on file Gender Identity Not on file Sexual Orientation Not on file documented as of this encounter Progress Notes * Carey Richard, WATERPROOF COATING MACHINE TENDER - 08/13/2022 12:00 PM EDT Gastroenterology Breath Test Report Patient: Dimple Simon Date Of : 1980 PCP: None Referring: Edwige Sidhu STUDY DATE: 08/26/2022 PROVIDER: Carey Richard APRN INDICATION: bloating ppmH2 ppmCH4 CO2(f) Fasting Baseline 20 17 3.9/1.56 Administer sugar: Glucose 75g with 90 mL H2O Sample Time ppmH2 ppmCH4 CO2(f) 90 min 7 13 3.3/1.84 Symptoms during the test: no Interpretation: Excess hydrogen production (>20ppm) at baseline. This may represent presence of a small intestinal bacterial overgrowth (SIBO) variant or deviation from test protocol. Patient had excess production of methane which can be associated with constipation. Patient reported no symptoms during the test. Clinical interpretation is based on the Hydrogen and Methane-Based Breath Testing in Gastrointestinal Disorders: The [place] Consensus (Am J Gastroenterol 2017; 112(5):775-84. Apositive breath test is defined as a rise in hydrogen production >20 ppm compared to baseline within 90 minutes. Methane-positive is defined by at least 10 ppm production of methane. Signed, Carey Richard APRN [place]astroenter[place] [address] P: [phone] F: [phone] Copy: Edwige Sidhu None documented in this encounter Plan of Treatment Not on file documented as of this encounter Visit Diagnoses Diagnosis Diarrhea, unspecified type documented in this encounter Care Teams Retort Furnace Helper Relationship Specialty Start Date End Date None None PCP - General 06/23/22 09/08/22 documented as of this encounter
--- OUTSIDE RECORDS SUMMARY | 2024-02-04 15:31 | XMS_ITS | Encounter Summary ---
[facility] Organization [facility] [place] [address] Care Team Providers Care Student Driving Instructor Name Role Phone None Primary Care Provider Unavailabl e Encounter Details Date Type Department Care Team (Late st Contact Info) Description 06/23/2022 4:15 PM EDT - 06/23/2022 4:45 PM EDT Surgery [place] [address] Jade Cordero MD [facility] [place] [address] EGD WITH BIOPSY (WRVU 2.39) Social History Tobacco Use Types Packs/Day Years Used Date Smoking Tobacco: Never Smokeless Tobacco: Never Tobacco Cessation:Counseling Given: Not Answered Alcohol Use Standard Drinks/Week Comments Not Currently 0 (1 standard drink = 0.6 oz pur e alcohol) Sex and Gender Information Value Date Recorded Sex Assigned at Not on file Gender Identity Not on file Sexual Orientation Not on file documented as of this encounter Last Filed Vital Signs Vital Sign Reading Time Taken Comments Blood Pressure 161/113 06/23/2022 4:45 PM EDT Pulse 94 06/23/2022 4:45 PM EDT Temperature 37 ??C (98.6 ??F) 06/23/2022 3:16 PM EDT Respiratory Rate 14 06/23/2022 4:45 PM EDT Oxygen Saturation 99% 06/23/2022 4:45 PM EDT Inhaled Oxygen Concentration - - Weight 74.8 kg (165 lb) 06/23/2022 3:16 PM EDT Height 154.9 cm (5' 1) 06/23/2022 3:16 PM EDT Body Mass Index 31.18 06/23/2022 3:16 PM EDT documented in this encounter Discharge Instructions * Discharge Instructions* Connie Last, RN - 06/23/2022 5:03 PM EDT Upper GI Endoscopy: What to Expect at Home Your Recovery You will be able to go home after your doctor or nurse checks to make sure you are not having any problems. You may have to stay overnight if you had treatment during the test. You may have a sore throat fora day or two after the test. This care sheet gives you a general idea about what to expect after the test. How can you care for yourself at home? Activity Rest when you feel tired. You can do your normal activities when it feels okay to do so. Diet Follow your doctor's directions for eating. Unless your doctor has told you not to, drink plenty of fluids. This helps to replace the fluids that were lost during the prep. Do not drink alcohol. Medicines Your doctor will tell you if and when you can restart your medicines. He or she will also give you instructions about taking any new medicines. If you take blood thinners, such as warfarin (Coumadin), clopidogrel (Plavix), or aspirin, be sure to talk to your doctor. He or she will tell you if and when to start taking those medicines again. Make sure that you understand exactly what your doctor wants you to do. If polyps were removed or a biopsy was done during the test, your doctor may tell you not to take aspirin or other anti-inflammatory medicines for a few days. These include ibuprofen (Advil, Motrin) and naproxen (Aleve). If you have a sore throat the day after the procedure, use an kong-hsk-vqjrogx spray to numb your throat. Sucking on throat lozenges and gargling with warm salt water may also help relieve your symptoms. Other instructions For your safety, do not drive or operate machinery until the medicine wears off and you can think clearly. Your doctor may tell you not to drive or operate machinery until the day after your test. Do not sign legal documents or make major decisions until the medicine wears off and you can think clearly. The anesthesia can make it hard for you to fully understand what you are agreeing to. Additional Information for Sedation Patients For patients who received sedation: You may have received medications before and/or during your procedure which effects your judgement and reaction time. Do not drive, operate machinery, drink alcoholic beverages or make important decisions for 24 hours. Be careful on stairs as you may be unsteady on your feet. You may eat a regular diet as tolerated. Do not smoke if you are alone. IV site: Slight redness or tenderness is normal, you can use a warm compress if you would like. If tenderness and/or redness increase or if foul drainage occurs, please contact your Doctor. Please call [phone] before 8pm Mon-Fri with problems, questions or concerns. If you call after 8pm or on weekends, call the Hospital at [phone] and ask to speak to the Rack Room Worker sales solutions associate and the uniform cap operator will contact that person for you. When should you call for help? Call [phone] anytime you think you may need emergency care. For example, call if: You passed out (lost consciousness). You pass maroon or bloody stools. You have trouble breathing. Call your doctor now or seek immediate medical care if: You have pain that does not get better after you take pain medicine. You are sick to your stomach or cannot drink fluids. You have new or worse belly pain. You have blood in your stools. You have a fever. You cannot pass stools or gas. Watch closely for changes in your health, and be sure to contact your doctor if you have any problems. Where can you learn more? [facility] View your After Visit Summary and more online at [email or web address] If you would like to provide feedback about your hospital experience, please call the Office of Patient and Family Relations at . If you have received this After Visit Summary in error, please immediately return it in person to the department, or notify the [facility] Privacy Office by calling toll free at between the hours of 8AM and 5PM to arrange for our retrieval of the documents at no cost to you. Content Version: 12.2 ?? [id number] [employer]. Care instructions adapted under license by [facility]. If you have questions about a medical condition or this instruction, always ask your healthcare professional. [employer] disclaims any warranty or liability for your use of this information. documented in this encounter H&P Notes * Jade Cordero MD - 06/23/2022 4:23 PM EDT Gastroenterology and Hepatology Pre-Procedure History and Physical Exam Procedure: EGD: Indication: Chronic nausea and diarrhea EXAM: HEENT: Airway examined, oropharynx clear Mallampati Score: II (soft palate, uvula, fauces visible) LUNGS: Clear to auscultation HEART: Regular rate and rhythm, normal S1, S2 ABDOMEN: Normal bowel sounds, soft, non tender, non distended, A/P Proceed with the planned endoscopic procedure. ASA 2 - Patient with mild systemic disease with no functional limitations Sedation Plan: moderate (conscious sedation) Risks and benefits of the procedure explained to the patient. Consent signed. documented in this encounter Plan of Treatment Not on file documented as of this encounter Procedures Procedure Name Priority Date/Time Associated Diagnosis Comments SPECIMEN TO PATHOLOGY Routine 06/23/2022 4:54 PM EDT SPECIMEN TO PATHOLOGY Routine 06/23/2022 4:54 PM EDT SURGICAL PATHOLOGY REPORT Routine 06/23/2022 4:49 PM EDT Upper Gi Endoscopy, Biopsy ([id number]) 06/23/2022 4:26 PM EDT Diarrhea, unspecified type Chronic nausea UPPER GI ENDOSCOPY Routine 06/23/2022 4: 19 PM EDT documented in this encounter Results * Specimen to Pathology (06/23/2022 4:54 PM EDT) AP Specimen 06/23/2022 4:54 PM EDT 06/23/2022 4:54 PM EDT Narrative [facility] - 06/23/2022 4:54 PM EDT Specimen requisition ordered. ??Separate Pathology report to follow L Dion Cordero MD PATHOLOGY/CYTOLOGY O RDNIKOLAI Performing Organization Address [facility]/ZIP Co de Phone Number [facility] [place] [address] * Specimen to Pathology (06/23/2022 4:54 PM EDT) AP Specimen 06/23/2022 4:54 PM EDT 06/23/2022 4:54 PM EDT Narrative [facility] - 06/23/2022 4:54 PM EDT Specimen requisition ordered. ??Separate Pathology report to follow L Dion Cordero MD PATHOLOGY/CYTOLOGY O RDERABLES Performing Organization Address [facility] Co de Phone Number [facility] [place] [address] * Surgical Pathology Report (06/23/2022 4:49 PM EDT) Final Diagnosis ? Location: 4T; 06; A The signing pathologist has (i) examined the relevant preparation(s) for the specimen(s) and (ii) rendered or confirmed the diagnosis(es). . ?Surgical Pathology DIAGNOSIS A - Duodenum R/O Celiac, biopsy (Multiple): - ??Duodenal mucosa with focal reactive change. B - Gastric R/O H. pylori, biopsy (Multiple): - ??Antrum-type mucosa with focal ??intestinal metaplasia - ??Body/fundic-t ype mucosa, negative for diagnostic abnormality. Electronically signed by: ?Wei STEWARD, Carlitos Verified: ??07/03/2022 15:43 ??Pathologist Performed at: ??-[facility], [place] [address] Alterations Supervisor: Niraj Padron MD, FCAP, ??CLIA Certificate: [id number] SPECIMEN(S) SUBMITTED A - Duodenum R/O Celiac, biopsy (Multiple) B - Gastric R/O H. pylori, biopsy (Multiple) CLINICAL INFORMATION Chronic nausea and diarrhea SPECIMEN PROCESSING A - Labeled/Fixativ e: Duodenum rule out celiac, formalin. Quantity/Size: Five, 0.2-0.3 cm. Tissue Description: Soft, mena-pink tissues. Sections/Proces sing: Submitted en toto ??in 1 cassette labeled A1. B - Labeled/Fixativ e: Gastric rule out H. pylori, formalin. Quantity/Size: Fragments, 0.2-0.4 cm. Tissue Description: Soft, mena-pink tissues. Sections/Proces sing: Submitted en toto ??in 1 cassette labeled B1. ??pps 07/03/2022 3:43 PM EDT [facility] GI Biopsy 06/23/2022 4:49 PM EDT 06/23/2022 4:49 PM EDT GI Biopsy 06/23/2022 4:49 PM EDT 06/23/2022 4:49 PM EDT L Dion Cordero MD PATHOLOGY/CYTOLOGY O RDERABLES Performing Organization Address [facility]/State/ZIP Co de Phone Number [facility] [place] [address] [facility] [place] [address] * UPPER GI ENDOSCOPY (06/23/2022 4:19 PM EDT) UPPER GI ENDOSCOPY [facility] Endoscopy Procedure Date: 06/23/2022 4:19 PM ? Patient Name: Dimple Simon ? Date of : 1980 ? Age: 41 ? Order #: [id number] ? Instrument Name: [id number] ? Procedure: ? Upper GI endoscopy Indications: ? Diarrhea, Nausea Providers: ? Teddy Cordero MD, Camden Alcala ? DECLAN Morocho, Lora Daniels Referring : ?Edwige Barron Nahum Medicines: ? Midazolam 6 mg IV, Fentanyl 200 ? micrograms IV, Diphenhydramine 50 ? mg IV, Benzocaine spray Complications: ? No immediate complications. Procedure: ? Pre-Anesthesia Assessment: ? - Prior to the procedure, a History ? and Physical was performed, and ? patient medications and allergies ? were reviewed. The patient is ? competent. The risks and benefits ? of the procedure and the sedation ? options and risks were discussed ? with the patient. All questions ? were answered and informed consent ? was obtained. Patient ? identification and proposed ? procedure were verified by the ? physician in the pre-procedure area ? in the endoscopy suite. Mental ? Status Examination: alert and ? oriented. Airway Examination: ? normal oropharyngeal airway and ? neck mobility. Respiratory ? Examination: clear to auscultation. ? CV Examination: normal. ASA Grade ? Assessment: II - A patient with ? mild systemic disease. After ? reviewing the risks and benefits, ? the patient was deemed in ? satisfactory condition to undergo ? the procedure. The anesthesia plan ? was to use moderate sedation / ? analgesia (conscious sedation). ? Immediately prior to administration ? of medications, the patient was ? re-assessed for adequacy to receive ? sedatives. The heart rate, ? respiratory rate, oxygen ? saturations, blood pressure, ? adequacy of pulmonary ventilation, ? and response to care were monitored ? throughout the procedure. The ? physical status of the patient was ? re-assessed after the procedure. ? The procedure, indications, ? benefits, risks and alternatives ? were explained to the patient. ? Specifically discussed were ? potential complications including, ? but not limited to, bleeding, ? perforation, infection, missing a ? cancer, and adverse medication ? reactions. The Endoscope was ? introduced through the mouth, and ? advanced to the third part of ? duodenum The upper GI endoscopy was ? accomplished without difficulty. ? The patient tolerated the procedure ? well. ? Findings: ? The examined esophagus was normal. Z-line 38 cm from ? the incisors. ? Three localized healing small erosions were found in ? the gastric antrum. Otherwise normal stomach. ? Biopsies were taken with a cold forceps for ? Helicobacter pylori testing. ? The examined duodenum was normal. Biopsies for ? histology were taken with a cold forceps for ? evaluation of celiac disease. ? Moderate Sedation: ? I was present during the intraservice time as ? documented by the sedation RN. Impression: ?- Normal esophagus. ? - Focal small healing erosions in ? the stomach. Likely related to ? ibuprofen use and not a likely ? cause of symptoms. Biopsied. ? - Normal examined duodenum. ? Biopsied. Recommendation: ?- Await pathology results. ? - Follow-up with Ms Sidhu. ? Attending Participation: ? I personally performed the entire procedure. ? __ L. Dion Cordero MD 06/23/2022 4:57:02 PM Number of Addenda: 0 Note Initiated On: 06/23/2022 4:19 PM PROVATION 06/23/2022 4:19 PM EDT Heidi Marc APRN GENERAL SURGICAL ORD ERABLES PROVATION documented in this encounter Visit Diagnoses Diagnosis Diarrhea, unspecified type Chronic nausea Nausea alone documented in this encounter Administered Medications Inactive Administered Medications - up to 3 most recent administrations Medication Order MAR Action Action Date Dose Rate Site benzocaine (Hurricane One) 20% spray (restricted to renu-procedural use) ONCE PRN, Starting on Thu06/23/22 at 1637, Until Thu06/23/22 at 1926, Intra-Operative (Intra-Procedure) Given 06/23/2022 4:37 PM EDT 1 spray diphenhydrAMINE (Benadryl) (50 mg/mL) injection ONCE PRN, Starting on Thu06/23/22 at 1630, Until Thu06/23/22 at 1926, Intra-Operative (Intra-Procedure), Routine Given 06/23/2022 4:34 PM EDT 25 mg Given 06/23/2022 4:30 PM EDT 25 mg fentaNYL (pf) (50 mcg/mL) multi-dose injection ONCE PRN, Starting on Thu06/23/22 at 1630, Until Thu06/23/22 at 1926, Intra-Operative (Intra-Procedure), Routine Given 06/23/2022 4:39 PM EDT 50 mcg Given 06/23/2022 4:36 PM EDT 50 mcg Given 06/23/2022 4:33 PM EDT 50 mcg lactated ringers infusion 100 mL/hr, Intravenous, CONTINUOUS, Starting on Thu06/23/22 at 1530, Until Thu06/23/22 at 1726, Endoscopy (Day of Procedure) New Bag 06/23/2022 3:19 PM EDT 100 mL/hr 100 mL/hr midazolam (pf) (Versed) (1 mg/mL) multi-dose injection ONCE PRN, Starting on Thu06/23/22 at 1630, Until Thu06/23/22 at 1926, Intra-Operative (Intra-Procedure), Routine Given 06/23/2022 4:42 PM EDT 1 mg Given 06/23/2022 4:39 PM EDT 1 mg Given 06/23/2022 4:36 PM EDT 1 mg documented in this encounter Active and Recently Administered Medications Times are shown in EDT. Continuous Medication Order 06/21/2022 06/22/2022 06/23/2022 lactated ringers infusion (CANCELED) 100 mL/hr, Intravenous, CONTINUOUS, Starting on Thu06/23/22 at 1530, Until Thu06/23/22 at 1726, Endoscopy (Day of Procedure) 1519 (New Bag - Prov ider: Binta White RN) PRN Medication Order 06/21/2022 06/22/2022 06/23/2022 benzocaine (Hurricane One) 20% spray (restricted to renu-procedural use) (CANCELED) ONCE PRN, Starting on Thu06/23/22 at 1637, Until Thu06/23/22 at 1926, Intra-Operative (Intra-Procedure) 1637 (Given - Provid er: Camden Morocho RN) diphenhydrAMINE (Benadryl) (50 mg/mL) injection (CANCELED) ONCE PRN, Starting on Thu06/23/22 at 1630, Until Thu06/23/22 at 1926, Intra-Operative (Intra-Procedure), Routine 1630 (Given - Provid er: Camden Morocho RN)1634 (Given - Provider: Camden Morocho RN) fentaNYL (pf) (50 mcg/mL) multi-dose injection (CANCELED) ONCE PRN, Starting on Thu06/23/22 at 1630, Until Thu06/23/22 at 1926, Intra-Operative (Intra-Procedure), Routine 1630 (Given - Provid er: Camden Morocho RN)1633 (Given - Provider: Camden Morocho RN)1636 (Given - Provider: Camden Morocho RN)1639 (Given - Provider: Camden Morocho RN) midazolam (pf) (Versed) (1 mg/mL) multi-dose injection (CANCELED) ONCE PRN, Starting on Thu06/23/22 at 1630, Until Thu06/23/22 at 1926, Intra-Operative (Intra-Procedure), Routine 1630 (Given - Provid er: Camden Morocho RN)1633 (Given - Provider: Camden Morocho RN)1636 (Given - Provider: Camden Morocho RN)1639 (Given - Provider: Camden Morocho RN)1642 (Given - Provider: Camden Morocho RN) documented in this encounter Care Teams Student Driving Instructor Relationship Specialty Start Date End Date None None PCP - General 06/23/22 09/08/22 documented as of this encounter
--- OUTSIDE RECORDS SUMMARY | 2024-02-04 15:31 | XMS_ITS | Clinical Summary ---
Author Organization [facility] Address [facility] [place] [address] Care Team Providers Care Online Editor Name Role Phone Helena Can ARELY Primary Care Provider [phone] Allergies No known active allergies Medications Medication Sig Dispensed Refills Start Date End Date Status clindamycin-benzoyl peroxide (Acanya) 1.2-2.5 % Gel with Pump APPLY TO AFFECTED AREA(S) USING A SMALL AMOUNT TWO TIMES A DAY 09/30/2022 Active nystatin (MYCOSTATIN) 100,000 unit/gram Powder 07/30/2022 Active traMADoL (Ultram) 50 mg tablet Take 50-100 mg by mouth every 6 hours as needed for Pain. 08/04/2022 Active mupirocin (Bactroban) 2 % OintmentIndications: Acne excoriee Apply topically to affected areas on the face, neck and back daily for 4 weeks or until resolved. 15 g 1 12/11/2022 Active terbinafine (LamISIL) 250 mg tabletIndications:On ychomycosis Take 1 tablet by mouth daily. 60 tablet 12/11/2022 Active Social History Tobacco Use Types Packs/Day Years [...] on file Sexual Orientation Not on file Last Filed Vital Signs Vital Sign Reading Time Taken Comments Blood Pressure 115/81 06/23/2022 5:10 PM EDT Pulse 94 06/23/2022 4:45 PM EDT Temperature 37 ??C (98.6 ??F) 06/23/2022 3:16 PM EDT Respiratory Rate 16 06/23/2022 5:10 PM EDT Oxygen Saturation 98% 06/23/2022 5:10 PM EDT Inhaled Oxygen Concentration - - Weight 74.8 kg (165 lb) 06/23/2022 3:16 PM EDT Height 154.9 cm (5' 1) 06/23/2022 3:16 PM EDT Body Mass Index 31.18 06/23/2022 3:16 PM EDT Plan of Treatment Health Maintenance Due Date Last Done Comments HIV screen 08/30/1997 Hepatitis C Screening 08/30/1997 Lipid Screening 08/30/1997 Hepatitis B vaccine (0-59 yrs) (1) 08/30/1998 Tetanus/Diphtheria/Pertussis Vaccines (1 - Tdap) 08/30 HPV test 08/30/2009 PAP Smear 08/30/2009 Breast Cancer Share Decision Needed 2019 Breast Cancer screening 2019 Covid-19 Vaccine (1 - season) 2023 Influenza (Flu) vaccine (1 o f 1 - Influenza standard series) 10/18/2023 Diabetes Screening (HgbA1C or Glucose) 12/11/2025 Procedures Procedure Name Priority Date/Time Associated Diagnosis Comments COMPREHENSIVE METABOLIC PANEL Routine 12/11/2022 4:45 PM EDT High risk medication use from Last 3 Months or Most Recently Relevant to Health Maintenance Results * (ABNORMAL) Comprehensive metabolic panel (non-fasting) (12/11/2022 4:45 PM EDT) Glucose 114 65 - 199 mg/dL [facility] Comment:Diabetes: >=200 mg/d L plus symptoms Blood Urea Nitrogen 11 8 - 18 mg/dL [facility] Creatinine 0.52(L) 0.70 - 1.20 mg/dL [facility] Sodium 138 135 - 145 mmol/L [facility] Potassium 3.2(L) 3.5 - 5.0 mmol/L [facility] Comment: Please note: ??Patients with WBC >100,000 may have falsely elevated Potassium levels. ??For accurate Potassium quantification in these patients send serum separator tube (gold top) for subsequent determinations. ??Contact the Clinical Chemistry Laboratory if there are any questions. Chloride 103 98 - 107 mmol/L [facility] Carbon Dioxide 23 22 - 31 mmol/L [facility] Anion Gap 12 5 - 15 mmol/L [facility] Calcium 9.6 8.5 - 10.5 mg/dL [facility] Protein, Total 7.0 6.1 - 8.0 g/dL [facility] Albumin 4.3 3.2 - 5.2 g/dL [facility] Aspartate Aminotransferase 12 0 - 30 unit/L [facility] Alanine Aminotransferase 9 0 - 30 unit/L [facility] Alkaline Phosphatase 82 35 - 105 unit/L [facility] Bilirubin, Total <0.2(L) 0.2 - 1.3 mg/dL [facility] Est Glomerular Filtration Rate 118 >=60 mL/min/1. 73 m?? [facility] Comment: This patient's estimated GFR was [...] In Lab Romero Eddy MD CHEMISTRY ORDERABLES [facility] [place] [address] from Last 3 Months or Most Recently Relevant to Health Maintenance Care Teams Online Editor Relationship Specialty Start Date End Date Helena Can APRN [facility] [address] [place] [address] PCP - General Family Medicine 09/09/22
--- OUTSIDE RECORDS SUMMARY | 2024-02-04 15:31 | XMS_ITS | Encounter Summary ---
[place] [address] Care Team Providers Care Track And Field Coach Name Role Phone Unavailable Primary Care Provider Unavailabl e Reason for Referral * Consultation (Routine) - Closed Specialty Diagnoses / Procedures Referred By Ana farias Referred To Contact Gastroenterology Diagnoses Noninfectious gastroenteritis, unspecified type Noninfectious gastroenteritis, Heidi Marc APRN [address] [place] [address] [facility] [place] [address] Referral ID Status Reason Start Date Expiration Date V isits Requested Visits Authorized [id number] Closed Consult, Test & Treat PCP Updated and/or Approved 03/10/2022 03/10/2023 6 6 Encounter Details Date Type Department Care Team (Late st Contact Info) Description 03/10/2022 Transcribe Orders eDH Incoming Referrals [phone] Heidi Marc APRN [address] [place] [address] Noninfectious gastroenteritis, unspecified type Social History Tobacco Use Types Packs/Day Years Used Date Smoking Tobacco: Never Assessed Sex and Gender Information Value Date Recorded Sex Assigned at Not on file Gender Identity Not on file Sexual Orientation Not on file documented as of this encounter Plan of Treatment Scheduled Referrals Name Type Priority Associated Diagnoses Order Schedule Referral to Gastroenterology Outpatient Referral Routine Noninfectious gastroenteritis, unspecified type Ordered: 03/10/2022 documented as of this encounter Visit Diagnoses Diagnosis Noninfectious gastroenteritis, unspecified type documented in this encounter
--- OUTSIDE RECORDS SUMMARY | 2024-02-04 15:31 | XMS_ITS | Encounter Summary ---
[place] [address] Care Team Providers Care Formulation Chemist Name Role Phone Unavailable Primary Care Provider Unavailabl e Reason for Referral * Diagnostic Test (Routine) - Closed Specialty Diagnoses / Procedures Referred By Ana farias Referred To Contact Gastroenterology Diagnoses Diarrhea, unspecified type HBT - glucose - diarrhea Procedures Breath Hydrogen Test Edwige Sidhu PA [facility] [place] [address] [facility] [address] [place] [id number] Referral ID Status Reason Start Date Expiration Date V isits Requested Visits Authorized [id number] Closed Consult, Test & Treat 06/13/2022 06/13/2023 1 1 Reason for Visit * Consultation (Routine) - Closed Specialty Diagnoses / Procedures Referred By Ana farias Referred To Contact Gastroenterology Diagnoses Noninfectious gastroenteritis, unspecified type Noninfectious gastroenteritis, Heidi Marc W, LUMP ROOM SUPERVISOR [address] [place] [address] [facility] [address] [place] [id number] Referral ID Status Reason Start Date Expiration Date V isits Requested Visits Authorized [id number] Closed Consult, Test & Treat PCP Updated and/or Approved 03/10/2022 03/10/2023 6 6 Encounter Details Date Type Department Care Team (Latest Contact Info) Description 06/13/2022 3:30 PM EDT TH Visit (TeleHealth) Gastroenterology at [facility] [place] [address] Edwige Sidhu PA [facility] [place] [address] Diarrhea, unspecified type; Chronic nausea Social History Tobacco Use Types Packs/Day Years Used Date Smoking Tobacco: Never Assessed Sex and Gender Information Value Date Recorded Sex Assigned at Not on file Gender Identity Not on file Sexual Orientation Not on file documented as of this encounter Progress Notes * Edwige Sidhu PA - 06/13/2022 3:30 PM EDT Images from the original note were not included. GASTROENTEROLOGY TELEHEALTH PROGRAM - NEW PATIENT VISIT Chief Complaint: Heriberto Simon is a 41 y.o. patient referred for consultation by Dr. Marc for diarrhea History of Present Illness: 10 years of diarrhea Colonoscopies as below She was [place] [facility] [place] and her primary team discussed neuromodulation Patient states she refused amitriptyline which was recommended She reports having 5 BM per day She was referred to GI to discuss SIBO testing She has been vomiting but then tells me its been better since April Some early satiety Trials: Imodium Pepto Allergies: has no allergies on file. Past Medical History: Past Surgical History: Assessment/Plan: 41-year-old female under the care of [facility] referred to [facility] for small intestinal bacterial overgrowth testing. She reports chronic diarrhea for over 10 years where she has 5+ bowel movements per day. She had multiple colonoscopies with random biopsies negative for microscopic colitis. She has tried vjcx-pwj-tojwred products without improvement. Her previous grain wafer machine operator recommended amitriptyline, however she refused this due to side effects. She continues to have diarrhea along with nausea. We spent time today discussing the collaborative model. Recommendations 1. Hydrogen breath test for small intestinal bacteria overgrowth 2. EGD due to nausea 3. Gastric emptying scan due to nausea Pending above, PCP and or local GI provider consider the use of Xifaxan for small intestinal bacterial overgrowth or irritable bowel syndrome/diarrhea. Patient understands I will defer prescribing medications to her PCP or local GI team. If there is evidence of delayed gastric emptying I would not necessarily recommend prokinetics due to side effect profile but rather working closely with the dietitian. We did spend time today discussing the brain gut connection in detail and I do agree with neuromodulators for PCP or local GI team. See below for neuromodulators to consider Neuromodulators for the local managing provider to consider (depending on appropriateness from a mental health/non-GI standpoint as determined by the PCP; try jvd-pf-k-time for at least ~90 days eachbefore switching therapy, as long as tolerated) 1. consider mirtazapine 7.5mg qhs titrating up to 15mg or 30mg at night, or 15mg twice daily as needed, (most side effects are sedation and blurred vision) 2. consider buspirone 7.5mg nightly, uptitrating to 15mg twice daily (possible side effects can include sedation, headache and vertigo) 3. consider desipramine 10mg at night, increase to 25mg as needed (possible side effects can include drowsiness, dry mouth, constipation, sexual dysfunction, arrhythmias, and weight gain) 4. Consider duloxetine or venlafaxine, (possible side effects can include nausea, agitation, dizziness, sleep disturbance, fatigue, and liver dysfunction) Due to the consultative nature of our practice, the patient should work with their local GI provider and PCP as their primary point of contact for urgent issues, medication refills and adjustments asneeded for continuity of care purposes in between our visits [facility] [place] [address] documented in this encounter Plan of Treatment Scheduled Orders Name Type Priority Associated Diagnoses Orde r Schedule Breath Hydrogen Test GI Routine Diarrhea, unspecified type Expected: 06/13/2022 (Approximate), Expires: 12/13/2022 ENDOSCOPY CASE REQUEST: EGD, UPPER GI ENDOSCOPY (WRVU 2.09) Procedures Routine Diarrhea, unspecified type Chronic nausea Ordered: 06/13/2022 documented as of this encounter Visit Diagnoses Diagnosis Diarrhea, unspecified type Chronic nausea Nausea alone documented in this encounter
--- OUTSIDE RECORDS SUMMARY | 2024-02-04 15:31 | XMS_ITS | Encounter Summary ---
Author Organization [facility] [place] [address] Care Team Providers Care Hospital Insurance Clerk Name Role Phone Unavailable Primary Care Provider Unavailabl e Encounter Details Date Type Department Care Team (Late st Contact Info) Description 06/17/2022 [place] [address] Neal Maguire Social History Tobacco Use Types Packs/Day Years Used Date Smoking Tobacco: Never Assessed Sex and Gender Information Value Date Recorded Sex Assigned at Not on file Gender Identity Not on file Sexual Orientation Not on file documented as of this encounter Miscellaneous Notes * Telephone Encounter - Neal Maguire - 06/17/2022 3:08 PM EDT Inbound/Outbound: Outbound Spoke to Patient/Left Message: Left message Notes: Outbound call to patient to schedule motility lab testing from referral. Left message askingfor callback to schedule. Return calls can be handled by: Motility Lab Candy Mixer documented in this encounter Plan of Treatment Not on file documented as of this encounter Visit Diagnoses Not on filedocumented in this encounter
--- OUTSIDE RECORDS SUMMARY | 2024-02-04 15:31 | XMS_ITS | Encounter Summary ---
[place] [address] Care Team Providers Care Visual Aid Expert Name Role Phone None Primary Care Provider Unavailabl e Encounter Details Date Type Department Care Team (Latest Contact Info) Description 08/13/2022 Travel Social History Tobacco Use Types Packs/Day [...] on filedocumented in this encounter Care Teams Visual Aid Expert Relationship Specialty Start Date End Date None None PCP - General 06/23/22 09/08/22 documented as of this encounter
--- OUTSIDE RECORDS SUMMARY | 2024-02-04 15:31 | XMS_ITS | Encounter Summary ---
Author Organization [facility] [place] [address] Care Team Providers Care Rn Paralegal Name Role Phone Unavailable Primary Care Provider Unavailabl e Encounter Details Date Type Department Care Team (Late st Contact Info) Description 06/18/2022 Telephone [place] [address] Humaira Dunaway Social History Tobacco Use Types Packs/Day Years Used Date Smoking Tobacco: Never Assessed Sex and Gender Information Value Date Recorded Sex Assigned at Not on file Gender Identity Not on file Sexual Orientation Not on file documented as of this encounter Miscellaneous Notes * Telephone Encounter - Humaira Dunaway - 06/18/2022 8:35 AM EDT Heriberto Simon [id number] Diagnosis/Indication: nausea Please review patient chart to confirm if previous Endoscopy procedure was performed within system. If yes, take note of Anesthesia type used. If previous procedure found, and with MAC/propofol Anesthesia support was used, schedule this procedure with Anesthesia and skip the Anesthesia portion of questions. If not performed within system, not performed at all, or performed with IVCS, ask Anesthesia questions. SCHEDULING QUESTIONS (ask all patient these questions) 1. Have you ever had a/an Upper Endoscopy before? Pt unsure If yes, did you have any problems with the procedure (such as waking up during the procedure, pain or difficulties afterwards, etc.)? unsure What type of sedation was used: Other: pt unsure 2. Do you take any blood thinners or have you been diagnosed with a bleeding disorder that increases your risk of bleeding with procedures? No 3. Do you have a Pacemaker or Defibrillator device? If yes, send pool message to Cardiology with patient information and date or procedure. No 4. Are you a diabetic? If yes, call PCP/managing provider to discuss use of prep and any questions or concerns related to. No 5. Do you take any iron supplements or vitamins that contain iron? No 6. Do you have a preference regarding the gender of your provider? No ANESTHESIA QUESTIONS (YES to any question, please book with Anesthesia support) 7. Have you ever been diagnosed with Pulmonary Hypertension and/or Congential Heart Disease? No 8. Have you been diagnosed with A-Fib (atrial fibrillation) that is NOT being well controled with medications? No 9. Have you ever had an allergic or adverse reaction to Fentanyl or Versed? No 10. Have you had a problem with sedation or anesthesia? (Waking up during procedure, extreme confusion after, etc.) No 11. Do you have a diagnosis of Obstructive Sleep Apnea that requires the use of a c-pap machine? No 12. Do you use an oxygen tank at home? No 13. Do you use a rescue inhaler more than twice per day? (COPD, severe asthma) No 14. Do you experience breathing problems when you lay flat for a period of time? No 15. Do you take prescription narcotic pain medications, including suboxone or methodone? No SCHEDULING CONFIRMATIONS: Please note any and all parts of your conversation with the patient here. 16. We offer all new patients an opportunity to have an appointment with one of our associate care providers to learn more about your upcoming procedure, ask questions and get answers. These appointments are offered via telehealth. Would you be interested in scheduling this appointment? (Only ask if NEW referral patient; skip this question if DH GI provider ordered the procedure.) No 17. Is there any other information or concerns you would like to us to share with your care team inrelation to your upcoming scheduled procedure? No 18. You must have a responsible alliance party who will drive you to your procedure, stay on campus for the entire duration of your procedure, and drive you home from your procedure. Who will likely be your solo truck driver for the procedure? Patient must be scheduled for Anesthesia support if BMI is 40 or above Height: 5'1 Weight: 160lbs BMI: 30.2 Age:41 y.o. documented in this encounter Plan of Treatment Not on file documented as of this encounter Visit Diagnoses Not on filedocumented in this encounter
--- OUTSIDE RECORDS SUMMARY | 2024-02-04 15:31 | XMS_ITS | Encounter Summary ---
Author Organization [facility] [place] [address] Care Team Providers Care Boring Machine Set Up Operator Name Role Phone None Primary Care Provider Unavailabl e Encounter Details Date Type Department Care Team (Latest Contact Info) Description 06/23/2022 1:19 PM EDT - 06/23/2022 5:26 PM EDT Hospital Encounter [place] [address] Jade Cordero MD [facility] [place] [address] Discharge Disposition: Home Social History Tobacco Use Types Packs/Day Years [...] the day after the procedure, use an rnlg-iix-rlrdsqo spray to numb your throat. Sucking on [...] occurs, please contact your Doctor. Please call [phone] before 8pm Mon-Fri with problems, questions or concerns. If you call after 8pm or on weekends, call the Hospital at [phone] and ask to speak to the Cra[employer] Deal[employer] distributor publications and the hydrator operator will contact that person for you. When should you call for help? Call [phone] anytime you think you may need emergency [...] any problems. Where can you learn more? [facility] View your After Visit Summary and more online at [email or web address] If you would like to provide feedback about your hospital experience, please call the Office of Patient and Family Relations at . If you have received this After Visit Summary in error, please immediately return it in person to the department, or notify the [facility] Privacy Office by calling toll free at between the hours of 8AM and 5PM to arrange for our retrieval of the documents at no cost to you. Content Version: 12.2 ?? [id number] [employer]. Care instructions adapted under license by [facility]. If you have questions about a medical condition or this instruction, always ask your healthcare professional. [employer] disclaims any warranty or liability for your [...] 4:49 PM EDT Upper Gi Endoscopy, Biopsy ([id number]) 06/23/2022 4:26 PM EDT Diarrhea, unspecified type Chronic nausea UPPER GI ENDOSCOPY Routine 06/23/2022 4: 19 PM EDT documented in this encounter Results * Specimen to Pathology (06/23/2022 4:54 PM EDT) AP Specimen 06/23/2022 4:54 PM EDT 06/23/2022 4:54 PM EDT Narrative [facility] - 06/23/2022 4:54 PM EDT Specimen requisition ordered. ??Separate Pathology report to follow Jade Cordero MD PATHOLOGY/CYTOLOGY O [place] Performing Organization Address [facility]/ZIP Co de Phone Number [facility] [place] [address] * Specimen to Pathology (06/23/2022 4:54 PM EDT) AP Specimen 06/23/2022 4:54 PM EDT 06/23/2022 4:54 PM EDT Narrative [facility] - 06/23/2022 4:54 PM EDT Specimen requisition ordered. ??Separate Pathology report to follow L Dion Cordero MD PATHOLOGY/CYTOLOGY O [place] Performing Organization Address [facility] Co de Phone Number [facility] [place] [address] * Surgical Pathology Report (06/23/2022 4:49 PM EDT) Final Diagnosis [id number] ? Location: 4T; 06; A The signing [...] Carlitos Verified: ??07/03/2022 15:43 ??Pathologist Performed at: ??-[facility] Dept. of Pathology, [place] [address] Lathe Turner: Niraj Padron MD, FCAP, ??CLIA Certificate: [id number] SPECIMEN(S) SUBMITTED A - Duodenum R/O Celiac, [...] labeled B1. ??pps 07/03/2022 3:43 PM EDT [facility] GI Biopsy 06/23/2022 4:49 PM EDT 06/23/2022 4:49 PM EDT GI Biopsy 06/23/2022 4:49 PM EDT 06/23/2022 4:49 PM EDT L Dion Cordero MD PATHOLOGY/CYTOLOGY O RDERABLES Performing Organization Address [facility]/State/ZIP Co de Phone Number [facility] [place] [address] [facility] [place] [address] * UPPER GI ENDOSCOPY (06/23/2022 4:19 PM EDT) UPPER GI ENDOSCOPY [facility] Endoscopy Procedure Date: 06/23/2022 4:19 PM ? Patient Name: Dimple Simon ? Date of : 1980 ? Age: 41 ? Order #: [id number] ? Instrument Name: [id number] ? Procedure: ? Upper GI endoscopy Indications: [...] PROVATION documented in this encounter Visit Diagnoses Not on filedocumented in this encounter Administered Medications Inactive Administered Medications - up to 3 most recent administrations Medication Order MAR Action Action Date Dose Rate Site lactated ringers infusion 100 mL/hr, Intravenous, CONTINUOUS, Starting on Thu06/23/22 at 1530, Until Thu06/23/22 at 1726, Endoscopy (Day of Procedure) New Bag 06/23/2022 3:19 PM EDT 100 mL/hr 100 mL/hr documented in this encounter Active and Recently [...] RN) documented in this encounter Care Teams Boring Machine Set Up Operator Relationship Specialty Start Date End Date None None PCP - General 06/23/22 09/08/22 documented as of this encounter
--- OUTSIDE RECORDS SUMMARY | 2024-02-04 15:31 | XMS_ITS | Encounter Summary ---
Author Organization [facility] Address [facility] [place] [address] Care Team Providers Care Technical Aide Name Role Phone Helena Can APRN Primary Care Provider [phone] Encounter Details Date Type Department Care Team (Latest Contact Info) Description 12/19/2022 Transcribe Orders Dermatology at [facility] [address] [place] [address] Romero Eddy MD High risk medication use; Onychomycosis Social History Tobacco Use Types Packs/Day Years [...] as of this encounter Visit Diagnoses Diagnosis High risk medication use Encounter for long-term (current) use of other medications Onychomycosis Dermatophytosis of nail documented in this encounter Care Teams Technical Aide Relationship Specialty Start Date End Date Helena Can [place] [place] [address] PCP - General Family Medicine 09/09/22 documented as of this encounter
== END 2024-02-04 15:30 | disposition home or self-care (01) ==
LOC: NCHCN 15:29
PROVIDERS: Visit Provider Student in an Organized Health Care Education/Training Program
DX: R00.0 Tachycardia, unspecified (principal)
CPT/HCPCS: 80053; 84443; 85025

== ENCOUNTER 2024-05-05 11:39 | Outpatient (REF) | payer MEDICAID, SELFPAY ==
[2024-05-05 18:46] LABS: Abs Immature Grans 0.03 10^3/uL (0.0-0.06); Absolute Basophil Count 0.02 10^3/uL (0.0-0.2); Absolute Eosinophil Count 0.04 10^3/uL (0.0-0.7); Absolute Monocyte Count 0.53 10^3/uL (0.1-0.8); Absolute Neutrophil Count 5.36 10^3/uL (1.2-6.7); Basophils % 0.3 %; Eosinophils % 0.5 %; HCT 41.7 % (36.0-46.0); Immature Grans % 0.4 %; Lymphocytes % 25.1 %; MCH 26.4 pg (27.0-33.0); MCHC 31.2 % (32.0-36.0); MCV 85 fL (80-95); MPV 11.3 fL (8.0-11.0); Monocytes % 6.6 %; Neutrophils % 67.1 %; Platelet Count 307 10^3/uL (130-400); RBC 4.92 10^6/uL (3.93-5.22); RDW 14.7 % (11.7-14.6); RDW-SD 45.1 fL; WBC 7.98 10^3/uL (4.4-10.8)
[2024-05-05 18:56] LABS: ALT 17 U/L (14-59); AST 11 U/L (15-37); Albumin 3.9 g/dL (3.4-5.0); Alkaline Phosphatase 88 U/L (46-116); Anion Gap 8.7 mmol/L (3-11); BUN 13 mg/dL (7-18); Bilirubin, Total 0.2 mg/dL (0.2-1.0); CO2 26.3 mmol/L (21.0-32.0); CREATININE 0.7 mg/dL (0.55-1.02); Calcium 9.3 mg/dL (8.5-10.1); Chloride 104 mmol/L (98-107); Cholesterol 227 mg/dL (<200); Glucose 90 mg/dL (74-106); HDL Cholesterol 37 mg/dL (>or=50); Potassium 4.2 mmol/L (3.5-5.1); Sodium 139 mmol/L (136-145); Total Protein 7.5 g/dL (6.4-8.2); Triglyceride 582 mg/dL (<150)
[2024-05-05 19:07] LABS: LDL CHOLESTEROL 92 mg/dL (<100)
[2024-05-05 20:04] LABS: Hemoglobin A1C 5.7 % (<5.7)
== END 2024-05-05 11:40 | disposition home or self-care (01) ==
LOC: NCHCN 11:39
PROVIDERS: PCP Nurse Practitioner Family; Visit Provider Nurse Practitioner Family
DX: R73.03 Prediabetes (principal); E78.1 Pure hyperglyceridemia; E87.6 Hypokalemia; D72.829 Elevated white blood cell count, unspecified
CPT/HCPCS: 80053; 80061; 83721; 83036; 85025

== ENCOUNTER 2024-05-30 16:27 | Outpatient (REF) | payer MEDICAID, SELFPAY ==
--- NOTE | 2024-05-30 16:15 | PAPFT_PTH ---
PATIENT: Dimple Simon LOC: N U#:[id number] AGE/SX: 43/F ROOM: RE05/30/[address]: Guerda Peterson MD : 1980 BED: DIS: 05/30/2024 SPEC #: [id number] RECD: 05/30/24 16:55 STATUS: [place]U [place] #: [id number] ABBY: 05/30/24 16:[address]: Guerda Peterson DEPT: [facility] Cytology RECD BY: Joanna Schulz ENTERED: 05/30/24 16:56 SP TYPE: PAPFT OTHR DR: Helena Can Tissues: 1 - CX/ENDOCX FOR PAP SMEARS Procedures: PAP THIN PREP/[facility] Screening Comments: [id number] (HVP - QNS)
== END 2024-05-30 16:28 | disposition home or self-care (01) ==
LOC: LBN 16:27
PROVIDERS: PCP Nurse Practitioner Family; Visit Provider Obstetrics & Gynecology
DX: Z01.419 Encounter for gynecological examination (general) (routine) without abnormal findings (principal)
CPT/HCPCS: 88142

== ENCOUNTER 2024-07-20 01:40 | Outpatient (CLI) | payer MEDICAID, SELFPAY ==
--- NOTE | 2024-07-20 15:00 | DI.MAMMO_ITS ---
Exam(s) MAMMO SCREENING EXAM: MAMMO SCREENING CLINICAL HISTORY: screening TECHNIQUE: Bilateral full field digital CC and MLO mammographic images were obtained with 3D tomosyn thesis and utilizing computer aided detection (CAD). COMPARISON: Available for comparison. FINDINGS: Masses/Architectural Distortion: No suspicious masses or areas of architectural distortion are presen t. Microcalcifications: No suspicious pleomorphic-type are seen. Skin Thickening/Nipple Retraction: None. IMPRESSION: 1. No significant interval change with no specific features of malignancy noted. 2. Unless there is more urgent need, screening mammography is recommended, as per [place] [employer] guidelines. BI-RADS Category 1 - Negative Breast Density - Category C - The breast are heterogeneously dense, which may obscure small masses. Breast density Category C or D implies that the patient has dense breast tissue. Dense breast tissue can make it harder to find cancer on a mammogram. Dense breast tissue is also associated with an incr eased risk of breast cancer. This information about the result of the mammogram report was provided to the patient to raise their awareness. Use this report when you speak with the patient about their risks for breast cancer, which includes their family history. At that time, you may recommend additional screening tests (Ultrasoun d or MRI) as these tests may add significant information. A negative radiographic report should not delay biopsy if a dominant or clinically suspicious mass is present. Up to ten percent of cancers are not identified on mammography. A negative report may reinforce clinical impression. Adenosis and dense breasts may obscure an underlying neoplasm. False positive reports average 6 to 10%. Patient will receive a letter notifying them of these results.
== END 2024-07-20 02:00 ==
LOC: DI 01:41
PROVIDERS: PCP Nurse Practitioner Family; Visit Provider Obstetrics & Gynecology
DX: Z12.31 Encounter for screening mammogram for malignant neoplasm of breast (principal); R92.333 Mammographic heterogeneous density, bilateral breasts
CPT/HCPCS: 77063; 77067